=== PATIENT | female | born 1960 | race Caucasian/White ===

== ENCOUNTER 2020-08-31 14:22 | Outpatient (REF) | payer OTHER, SELFPAY | END 2020-08-31 14:23 | disposition home or self-care (01) | LOC: HO.LAB 14:22 | PROVIDERS: Visit Provider Internal Medicine | DX: Z20.828 Contact with and (suspected) exposure to other viral communicable diseases (principal) | CPT/HCPCS: C9803; U0003 ==

== ENCOUNTER 2020-09-03 16:47 | Outpatient (REF) | payer OTHER, SELFPAY ==
--- NOTE | 2020-09-03 | MM_ITS ---
EXAMINATION: MM SCREENING DIGITAL BREAST TOMOSYNTHESIS, BILATERAL CLINICAL INFORMATION: Screening. Asymptomatic. The lifetime risk of breast cancer based on the Tyrer-Cuzick Model is 5%. COMPARISON: Mammography: 01/18/2019, 09/09/2017 TECHNIQUE: Digital breast tomosynthesis is performed in both the craniocaudal and mediolateral oblique views along with computer-aided detection (CAD). Synthesized 2D images are generated from the tomosynthesis. FINDINGS: There are scattered areas of fibroglandular density (ACR BI-RADS breast composition Category b). There are no significant masses, abnormal calcifications, or other abnormalities. No significant changes from prior exams. MM/MM tomosynthesis screening BI IMPRESSION: No mammographic evidence of malignancy. ASSESSMENT: BI-RADS 1: Negative RECOMMENDATION: Routine annual mammography screening. This patient's information was entered into a reminder system with a target due date for their next mammogram.
== END 2020-09-03 16:48 | disposition home or self-care (01) ==
LOC: HO.MAMMO 16:47
PROVIDERS: PCP Internal Medicine; Visit Provider Internal Medicine
DX: Z12.31 Encounter for screening mammogram for malignant neoplasm of breast (principal)
CPT/HCPCS: 77063; 77067

== ENCOUNTER 2021-01-26 15:16 | Outpatient (REF) | payer OTHER, SELFPAY ==
[2021-01-26 16:59] LABS: Estimated Average Glucose 117 mg/dL; Hemoglobin A1c % 5.7 %
[2021-01-26 17:08] LABS: Alanine Aminotransferase 23 U/L (0-31); Anion Gap 12 (12-20); Aspartate Amino Transferase 20 U/L (5-31); Blood Urea Nitrogen 15 mg/dL (9-16); Calcium 9.6 mg/dL (8.4-10.2); Carbon Dioxide 27 mmol/L (22-29); Chloride 103 mmol/L (96-108); Cholesterol 180 mg/dL; Estimated Glomerular Filt Rate > 60; Glucose Fasting 85 mg/dL (60-99); HDL Cholesterol 56 mg/dL; LDL Cholesterol Calculated 109 mg/dl; Potassium 4.1 mmol/L (3.3-5.1); Sodium 138 mmol/L (135-145); Triglycerides 79 mg/dL
[2021-01-26 17:29] LABS: Vitamin D 25-OH Total 49.9 ng/mL (>30)
== END 2021-01-26 15:17 | disposition home or self-care (01) ==
LOC: HO.HMGCLDS 15:16
PROVIDERS: PCP Internal Medicine; Visit Provider Internal Medicine
DX: I10 Essential (primary) hypertension (principal); R73.01 Impaired fasting glucose; E78.5 Hyperlipidemia, unspecified; K44.9 Diaphragmatic hernia without obstruction or gangrene; Z78.0 Asymptomatic menopausal state
CPT/HCPCS: 36415; 80048; 80061; 82306; 83036; 84450; 84460

== ENCOUNTER 2021-05-05 09:54 | Outpatient (REF) | payer OTHER, SELFPAY ==
[2021-05-05 12:14] LABS: Alanine Aminotransferase 20 U/L (0-31); Albumin Level 4.4 g/dL (3.5-5.0); Alkaline Phosphatase 125 U/L (39-117); Anion Gap 11 (12-20); Aspartate Amino Transferase 18 U/L (5-31); Bilirubin Total 0.4 mg/dL (0.0-1.0); Blood Urea Nitrogen 11 mg/dL (9-16); Calcium 10.1 mg/dL (8.4-10.2); Carbon Dioxide 27 mmol/L (22-29); Chloride 106 mmol/L (96-108); Estimated Glomerular Filt Rate > 60; Glucose Random 93 mg/dL (60-115); Phosphorus 3.5 mg/dL (2.7-4.5); Potassium 4.7 mmol/L (3.3-5.1); Sodium 139 mmol/L (135-145); Total Protein 7.4 g/dL (6.5-8.0)
[2021-05-05 12:39] LABS: Free T4 (Free Thyroxine) 1.03 ng/dL (0.71-1.85); Vitamin D 25-OH Total 45.5 ng/mL (>30)
[2021-05-06 10:57] LABS: Calcium, Ionized 5.4 mg/dL (4.8-5.6)
[2021-05-06 19:45] LABS: Calcium (PTHI) 10.2 mg/dL (8.6-10.4); PTHI 66 pg/mL (14-64)
[2021-05-06 22:26] LABS: Prot Elec - Albumin 4.5 g/dL (3.8-4.8); Prot Elec - Alpha1 0.3 g/dL (0.2-0.3); Prot Elec - Alpha2 0.7 g/dL (0.5-0.9); Prot Elec - Beta 1 0.5 g/dL (0.4-0.6); Prot Elec - Beta 2 0.4 g/dL (0.2-0.5); Prot Elec - Gamma 1.3 g/dL (0.8-1.7); Prot Elec - Total Protein 7.6 g/dL (6.1-8.1)
== END 2021-05-05 09:55 | disposition home or self-care (01) ==
LOC: HO.LAB 09:54
PROVIDERS: PCP Internal Medicine; Visit Provider Internal Medicine
DX: M81.0 Age-related osteoporosis without current pathological fracture (principal); E55.9 Vitamin D deficiency, unspecified
CPT/HCPCS: 36415; 80053; 82306; 82330; 83970; 84100; 84165; 84439; 84443

== ENCOUNTER 2021-05-07 09:41 | Outpatient (REF) | payer OTHER, SELFPAY ==
[2021-05-07 11:21] LABS: Total Volume 24 Hour Urine 625 mL
[2021-05-07 11:39] LABS: Creatinine, 24Hr Urine 0.5 G/Day (1.0-2.0); Creatinine, mg/dL 78.91
[2021-05-08 20:42] LABS: Calcium, 24 Hr Urine 84 mg/24 h; Calcium/Creatinine Ratio 163 mg/g creat (30-275); Creatinine 24Hr Urine 0.51 g/24 h (0.50-2.15)
== END 2021-05-07 09:42 | disposition home or self-care (01) ==
LOC: HO.LNP 09:41
PROVIDERS: Visit Provider Internal Medicine
DX: M81.0 Age-related osteoporosis without current pathological fracture (principal)
CPT/HCPCS: 82340; 82570

== ENCOUNTER 2021-06-01 14:08 | Outpatient (REF) | payer OTHER, SELFPAY ==
--- NOTE | ~2021-06-01 | MM_ITS ---
EXAMINATION: BONE DENSITOMETRY CLINICAL INDICATION: Age-related osteoporosis without current pathological fracture. COMPARISON: Previous BD dated 03/05/2019 and baseline BD dated 05/07/2010. TECHNIQUE: Using a [employer] DXA System (software version: 13.1) manufactured by [employer], dual-energy x-ray absorptiometry was performed of the lumbar spine and left hip. The images are of good technical quality. Summary results are attached. FINDINGS: AP SPINE L1-L4: Current: BMD 0.881 g/cm2, Z-score -1.3, T-score -2.5, osteoporosis, 0.6% increase from previous, 8.5% increase from baseline (<5% change is not significant). Prior: BMD 0.876 g/cm2. Baseline: BMD 0.812 g/cm2. LEFT FEMUR, NECK: Current: BMD 0.761 g/cm2, Z-score -0.8, T-score -2.0, osteopenia. Prior: BMD 0.759 g/cm2. Baseline: BMD 0.776 g/cm2. LEFT FEMUR, TOTAL: Current: BMD 0.757 g/cm2, Z-score -1.1, T-score -2.0, osteopenia, 2.9% increase from previous, 3.8% increase from baseline (<5% change is not significant). Prior: BMD 0.736 g/cm2. Baseline: BMD 0.729 g/cm2. IDENTIFIED RISK FACTORS: Low calcium intake, secondary osteoporosis, history of fracture (adult), menopause. HISTORY OF FRACTURE: Clavicle. MEDICATIONS: Calcium supplements or multivitamin, vitamin D. MM/XR DEXA axial skeleton IMPRESSION: 1. DIAGNOSIS: Osteoporosis based on the lowest T-score value of -2.5 in the lumbar spine applying World Health Organization criteria. 2. 10-YEAR FRACTURE RISK PREDICTION, FRAX: Major osteoporotic fracture (clinical spine, forearm, hip or shoulder) 16.8%. Hip fracture 2.4%. 3. Treatment Recommendations: NOF guidelines recommend consideration for treatment in postmenopausal women and men age 50 and older presenting with the following: -A hip or vertebral (clinical or morphometric) fracture. -T-score less than or equal to -2.5 at the femoral neck or spine after appropriate evaluation to exclude secondary causes. -Low bone mass at the hip or spine and a 10-year fracture probability by FRAX of greater than or equal to 3% for hip fracture or greater than or equal to 20% for major osteoporotic fracture based on the [place] adapted WHO algorithm. 4. Other Recommendations: All treatment decisions require clinical judgment and consideration of individual patient factors, including patient preferences, comorbidities, previous drug use, risk factors not captured in the FRAX model (e.g. frailty, falls, vitamin D deficiency, increased bone turnover, interval significant decline in bone density) and possible under or overestimation of fracture risk by FRAX. Additional medical evaluation for secondary cause of low bone mineral density may be appropriate. FUTURE SCAN RECOMMENDATION: People with diagnosed cases of osteoporosis or at high risk for fracture should have regular bone mineral density tests. For patients eligible for Medicare, routine testing is allowed once every 2 years. The testing frequency can be increased to one year for patients who have rapidly progressing disease, those who are receiving or discontinuing medical therapy to restore bone mass, or have additional risk factors.
== END 2021-06-01 14:09 | disposition home or self-care (01) ==
LOC: HO.MAMMO 14:08
PROVIDERS: Visit Provider Internal Medicine
DX: Z13.820 Encounter for screening for osteoporosis (principal); M81.0 Age-related osteoporosis without current pathological fracture; Z79.899 Other long term (current) drug therapy; Z78.0 Asymptomatic menopausal state; Z87.81 Personal history of (healed) traumatic fracture
CPT/HCPCS: 77080

== ENCOUNTER 2021-08-05 14:00 | Outpatient (REF) | payer OTHER, SELFPAY ==
[2021-08-05 14:59] LABS: Influenza A PCR NEGATIVE (Negative); Influenza B PCR NEGATIVE (Negative); Resp Syncy Virus RNA Qual PCR NEGATIVE (Negative); SARS COV2 PCR INHOUSE NEGATIVE (Negative)
== END 2021-08-05 14:01 | disposition home or self-care (01) ==
LOC: HO.LNP 14:00
PROVIDERS: Visit Provider Physician Assistant Medical
DX: Z20.822 Contact with and (suspected) exposure to COVID-19 (principal); J06.9 Acute upper respiratory infection, unspecified
CPT/HCPCS: 0241U

== ENCOUNTER 2021-08-26 14:26 | Outpatient (REF) | payer OTHER, SELFPAY ==
--- NOTE | ~2021-08-26 | XR_ITS ---
EXAMINATION: XR SINUSES CLINICAL INFORMATION: Shortness of the nose and nasal sinuses COMPARISON: None TECHNIQUE: Single Diaz' view of the paranasal sinuses. FINDINGS: Single Diaz' view of the paranasal sinuses does not demonstrate any evidence of acute sinusitis or significant mucosal thickening within the visualized paranasal sinuses. Mastoid air cells are aerated. No bony destruction is evident. XR/XR sinus diaz view IMPRESSION: Single Diaz' view without definite evidence to suggest acute sinusitis.
== END 2021-08-26 14:27 | disposition home or self-care (01) ==
LOC: HO.HMGCX 14:26
PROVIDERS: PCP Internal Medicine; Visit Provider Internal Medicine
DX: J34.89 Other specified disorders of nose and nasal sinuses (principal); R09.81 Nasal congestion; R51.9 Headache, unspecified
CPT/HCPCS: 70210

== ENCOUNTER → 2021-09-02 08:01 | Outpatient (BNVA) | payer OTHER, SELFPAY | PROVIDERS: PCP Internal Medicine; Visit Provider Internal Medicine ==

== ENCOUNTER 2021-09-30 14:54 | Outpatient (REF) | payer OTHER, SELFPAY ==
--- NOTE | ~2021-09-30 | MM_ITS ---
EXAMINATION: BONE DENSITOMETRY CLINICAL INDICATION: Hyperparathyroidism, unspecified. COMPARISON: Bone densitometry 06/01/2021. TECHNIQUE: Using a [employer] DXA System (software version: 13.1) manufactured by [employer], dual-energy x-ray absorptiometry was performed of the left forearm radius 33%. The images are of good technical quality. Summary results are attached. FINDINGS: LEFT FOREARM RADIUS 33%: BMD 0.635 g/cm2, Z-score -1.7, T-score -2.8, osteoporosis. Prior: Not previously measured. IDENTIFIED RISK FACTORS: Hyperparathyroidism, secondary osteoporosis, history of fracture (adult), menopause. HISTORY OF FRACTURE: Clavicle. MEDICATIONS: Vitamin D. MM/XR DEXA appendicular skeleton IMPRESSION: 1. DIAGNOSIS: Osteoporosis based on the lowest T-score value of -2.8 in the forearm radius 33% applying World Health Organization criteria. 2. 10-YEAR FRACTURE RISK PREDICTION, FRAX: According to the guidelines, FRAX calculation should only be performed on patients in the osteopenia bone density category. 3. Treatment Recommendations: NOF guidelines recommend consideration for treatment in postmenopausal women and men age 50 and older presenting with the following: -A hip or vertebral (clinical or morphometric) fracture. -T-score less than or equal to -2.5 at the femoral neck or spine after appropriate evaluation to exclude secondary causes. -Low bone mass at the hip or spine and a 10-year fracture probability by FRAX of greater than or equal to 3% for hip fracture or greater than or equal to 20% for major osteoporotic fracture based on the [place] adapted WHO algorithm. 4. Other Recommendations: All treatment decisions require clinical judgment and consideration of individual patient factors, including patient preferences, comorbidities, previous drug use, risk factors not captured in the FRAX model (e.g. frailty, falls, vitamin D deficiency, increased bone turnover, interval significant decline in bone density) and possible under or overestimation of fracture risk by FRAX. Additional medical evaluation for secondary cause of low bone mineral density may be appropriate. FUTURE SCAN RECOMMENDATION: People with diagnosed cases of osteoporosis or at high risk for fracture should have regular bone mineral density tests. For patients eligible for Medicare, routine testing is allowed once every 2 years. The testing frequency can be increased to one year for patients who have rapidly progressing disease, those who are receiving or discontinuing medical therapy to restore bone mass, or have additional risk factors.
== END 2021-09-30 14:55 | disposition home or self-care (01) ==
LOC: HO.MAMMO 14:54
PROVIDERS: PCP Internal Medicine; Visit Provider Internal Medicine
DX: Z13.820 Encounter for screening for osteoporosis (principal); E21.3 Hyperparathyroidism, unspecified; M85.80 Other specified disorders of bone density and structure, unspecified site; Z78.0 Asymptomatic menopausal state; Z87.81 Personal history of (healed) traumatic fracture; Z98.890 Other specified postprocedural states; Z79.899 Other long term (current) drug therapy
CPT/HCPCS: 77081

== ENCOUNTER 2021-10-11 13:54 | Outpatient (REF) | payer OTHER, SELFPAY ==
--- NOTE | ~2021-10-11 | US_ITS ---
EXAMINATION: US THYROID CLINICAL INFORMATION: Hyperparathyroidism, unspecified. COMPARISON: None TECHNIQUE: Linear transducer grayscale and color Doppler examination with attention to the region of the thyroid. FINDINGS: SIZE: Measurements of the thyroid lobes and nodules are given in sagittal, anteroposterior and transverse dimensions respectively. Right Thyroid Lobe: 5.2 x 2.1 x 1.7 cm, volume 9.7 mL. Parenchyma: The gland echotexture is homogeneous. Thyroid vascularity is normal. Left Thyroid Lobe: 4.1 x 1.3 x 1.6 cm, volume 4.5 mL. Parenchyma: The gland echotexture is homogeneous. Thyroid vascularity is normal. Isthmus: 0.2 cm in maximum AP dimension. Estimated total number of nodules greater than or equal to 1 cm: 1. Teacher Aide Clerical nodules are described as follows: 1. Location: Medial mid left. Size: 0.5 x 0.2 x 0.2 cm, volume 0.02 mL. Nodule characteristics: Composition: Spongiform (0). Echogenicity: Anechoic (0). Shape: Not taller than wide (0). Margins: Smooth (0). Echogenic Foci: None (0). ACR TI-RADS total points: 0 ACR TI-RADS category: 1 2. Location: Inferior left. Size: 1.1 x 0.6 x 1.0 cm, volume 0.32 mL. Nodule characteristics: Composition: Solid (2). Echogenicity: Very hypoechoic (3). Shape: Not taller than wide (0). Margins: Smooth (0). Echogenic Foci: None (0). ACR TI-RADS total points: 5 ACR TI-RADS category: 4 NODES: No significant adenopathy noted. Lung the inferior margin of the right and left lobe, a small hypoechoic areas, on the right at 13 x 8 x 6 mm and on the left 6 x 5 x 9 mm. These may reflect a parathyroid glands. US/US thyroid IMPRESSION: Small hypoechoic nodules in the left lobe. TR 4. Twelve-month follow-up advised. ACR TI-RADS RECOMMENDATION REFERENCE: Ultrasound-guided fine-needle aspiration, followup ultrasound, no further follow up. * TR1 (0 point) and TR 2 (2 points): No FNA or follow up * TR3 (3 points): FNA if more than or equal to 2.5 cm in maximum dimension, followup ultrasound in 1, 3 and 5 years if 1.5 to 2.4 cm in maximum dimension. * TR4 (4-6 points): FNA if more than or equal to 1.5 cm in maximum dimension, followup ultrasound in 1, 2, 3 and 5 years if 1 to 1.4 cm in maximum dimension. * TR5 (more than or equal to 7 points): FNA if more than or equal to 1 cm in maximum dimension, followup ultrasound every year for 5 years if 0.5 to 0.9 cm in maximum dimension. * TR3, TR4 or TR5 nodules that are below the size threshold for follow up receive no follow up.
[2021-10-11 16:56] LABS: Alanine Aminotransferase 27 U/L (0-31); Albumin Level 4.3 g/dL (3.5-5.0); Alkaline Phosphatase 118 U/L (39-117); Anion Gap 12 (12-20); Aspartate Amino Transferase 21 U/L (5-31); Bilirubin Total 0.3 mg/dL (0.0-1.0); Blood Urea Nitrogen 16 mg/dL (9-16); Calcium 9.8 mg/dL (8.4-10.2); Carbon Dioxide 25 mmol/L (22-29); Chloride 105 mmol/L (96-108); Estimated Glomerular Filt Rate > 60; Glucose Random 84 mg/dL (60-115); Phosphorus 2.7 mg/dL (2.7-4.5); Potassium 4.3 mmol/L (3.3-5.1); Sodium 138 mmol/L (135-145); Total Protein 7.4 g/dL (6.5-8.0)
[2021-10-11 17:16] LABS: Vitamin D 25-OH Total 42.1 ng/mL (>30)
[2021-10-13 12:47] LABS: Calcium (PTHI) 9.8 mg/dL (8.6-10.4); PTHI 79 pg/mL (14-64)
== END 2021-10-11 13:55 | disposition home or self-care (01) ==
LOC: HO.HMGCX 13:54
PROVIDERS: Absent Provider Internal Medicine; PCP Internal Medicine; Visit Provider Internal Medicine
DX: E21.3 Hyperparathyroidism, unspecified (principal); M81.0 Age-related osteoporosis without current pathological fracture; Z78.0 Asymptomatic menopausal state
CPT/HCPCS: 36415; 76536; 80053; 82306; 83970; 84100

== ENCOUNTER 2021-10-14 09:23 | Outpatient (REF) | payer OTHER, SELFPAY ==
[2021-10-14 10:10] LABS: Alanine Aminotransferase 27 U/L (0-31); Aspartate Amino Transferase 19 U/L (5-31); Cholesterol 201 mg/dL; Glucose Fasting 104 mg/dL (60-99); HDL Cholesterol 49 mg/dL; LDL Cholesterol Calculated 123 mg/dl; Triglycerides 145 mg/dL
[2021-10-14 10:33] LABS: Vitamin D 25-OH Total 46.2 ng/mL (>30)
[2021-10-14 11:06] LABS: Creatinine, mg/dL 92.78
[2021-10-14 11:55] LABS: Creatinine, 24Hr Urine 1.7 G/Day (1.0-2.0); Total Volume 24 Hour Urine 1825 mL
[2021-10-15 18:00] LABS: Calcium, 24 Hr Urine 195 mg/24 h; Calcium/Creatinine Ratio 113 mg/g creat (30-275); Creatinine 24Hr Urine 1.73 g/24 h (0.50-2.15)
== END 2021-10-14 09:24 | disposition home or self-care (01) ==
LOC: HO.LAB 09:23
PROVIDERS: PCP Internal Medicine; Visit Provider Internal Medicine
DX: E78.5 Hyperlipidemia, unspecified (principal); M81.0 Age-related osteoporosis without current pathological fracture; R73.01 Impaired fasting glucose; E55.9 Vitamin D deficiency, unspecified; E21.3 Hyperparathyroidism, unspecified; Z78.0 Asymptomatic menopausal state
CPT/HCPCS: 36415; 80061; 82306; 82340; 82570; 82947; 84450; 84460

== ENCOUNTER → 2021-10-28 12:53 | Outpatient (BNVA) | payer OTHER, SELFPAY | PROVIDERS: PCP Internal Medicine; Visit Provider Internal Medicine ==

== ENCOUNTER 2021-11-20 09:06 | Outpatient (REF) | payer OTHER, SELFPAY ==
--- NOTE | ~2021-11-20 | MM_ITS ---
EXAMINATION: MM SCREENING DIGITAL BREAST TOMOSYNTHESIS, BILATERAL CLINICAL INFORMATION: Screening. Asymptomatic. The lifetime risk of breast cancer based on the Tyrer-Cuzick Model is 5%. COMPARISON: Mammography: 09/03/2020, 01/18/2019, 09/09/2017 TECHNIQUE: Digital breast tomosynthesis is performed in both the craniocaudal and mediolateral oblique views along with computer-aided detection (CAD). Synthesized 2D images are generated from the tomosynthesis. FINDINGS: There are scattered areas of fibroglandular density (ACR BI-RADS breast composition Category b). There are no significant masses, abnormal calcifications, or other abnormalities. Parenchymal pattern is similar to prior studies. There is no developing density or architectural abnormality. The axilla and skin contours are unremarkable. No significant changes. MM/MM tomosynthesis screening BI IMPRESSION: No mammographic evidence of malignancy. ASSESSMENT: BI-RADS 1: Negative RECOMMENDATION: Routine annual mammography screening. This patient's information was entered into a reminder system with a target due date for their next mammogram.
== END 2021-11-20 09:07 | disposition home or self-care (01) ==
LOC: HO.MAMMO 09:06
PROVIDERS: PCP Internal Medicine; Visit Provider Internal Medicine
DX: Z12.31 Encounter for screening mammogram for malignant neoplasm of breast (principal)
CPT/HCPCS: 77063; 77067

== ENCOUNTER 2022-01-08 10:15 | Outpatient (REF) | payer OTHER, SELFPAY ==
--- NOTE | ~2022-01-08 | XR_ITS ---
EXAMINATION: XR CHEST CLINICAL INFORMATION: Cough COMPARISON: Previous chest x-ray most recent June 2020 TECHNIQUE: 2 views of the chest were obtained. FINDINGS: The cardiac and mediastinal contours are stable. The lungs are well inflated. There is chronic bronchial wall thickening or scarring in the right suprahilar region/paraspinal right upper lobe that appears unchanged. There is mild biapical pleural thickening that appears unchanged. The lungs are otherwise clear. There is no pleural effusion or pneumothorax. There are degenerative changes of the spine. XR/XR chest 2V IMPRESSION: No evidence for acute disease in the chest. Well-inflated lungs. Chronic right suprahilar bronchial wall thickening or scarring and mild biapical pleural thickening similar to previous exam.
== END 2022-01-08 10:16 | disposition home or self-care (01) ==
LOC: HO.HMGCX 10:15
PROVIDERS: PCP Internal Medicine; Visit Provider Physician Assistant Medical
DX: R05.9 Cough, unspecified (principal)
CPT/HCPCS: 71046

== ENCOUNTER 2022-05-12 09:31 | Outpatient (REF) | payer OTHER, SELFPAY ==
--- NOTE | 2022-05-12 10:23 | PM.OP ---
Brief Operative Note Date of Service: 05/12/22 Pre-op diagnosis: Multinodular Thyroid Procedure: This is doctor Anastacia Ashley. This is an ultrasound-guided fine-needle aspiration report. Date of Examination: 05/12/2022 Indication: Multinodular Thyroid Porcedure: Procedure was explained to the patient. Alternatives, the risk and benefits were discussed. Written consent was obtained. A time-out was also obtained. After sterile preparation, fine-needle aspiration of a left lower pole 1.1 thyroid nodule was performed using direct ultrasound guidance to confirm accurate needle placement. Five aspirations were made using 27 gauge needles. Samples were submitted for cytology. One pass was dedicated for Af[employer] Gene sequencing high school guidance counselor testing. The patient tolerated the procedure well. Aftercare instructions were provided. Impression: Uncomplicated fine needle aspiration biopsy of a left lower pole 1.1 cm thyroid nodule under ultrasound guidance. Surgeon: Anastacia Ashley, DO Was an Splitter Operator used for this Procedure?: No Estimated blood loss (mL): 0
[2022-05-12 11:39] LABS: Alanine Aminotransferase 20 U/L (0-31); Albumin Level 4.5 g/dL (3.5-5.0); Alkaline Phosphatase 119 U/L (39-117); Anion Gap 11 (12-20); Aspartate Amino Transferase 19 U/L (5-31); Bilirubin Total 0.5 mg/dL (0.0-1.0); Blood Urea Nitrogen 16 mg/dL (9-16); Carbon Dioxide 25 mmol/L (22-29); Chloride 105 mmol/L (96-108); Estimated Glomerular Filt Rate > 60; Glucose Random 96 mg/dL (60-115); Phosphorus 3.4 mg/dL (2.7-4.5); Potassium 4.2 mmol/L (3.3-5.1); Sodium 137 mmol/L (135-145); Total Protein 7.4 g/dL (6.5-8.0)
[2022-05-12] MEDS: Lidocaine HCl 1 % 20 ML VIAL 5 ML SUBCUT (11:43)
[2022-05-12 11:51] LABS: Free T4 (Free Thyroxine) 1.15 ng/dL (0.71-1.85); Thyroid Stimulating Hormone 1.65 uIU/mL (0.32-4.0); Vitamin D 25-OH Total 44.9 ng/mL (>30)
[2022-05-15 13:06] LABS: Calcium (PTHI) 9.9 mg/dL (8.6-10.4); PTHI 68 pg/mL (16-77)
== END 2022-05-12 09:32 | disposition home or self-care (01) ==
LOC: HO.US 09:31
PROVIDERS: Visit Provider Internal Medicine
DX: E21.3 Hyperparathyroidism, unspecified (principal); E04.2 Nontoxic multinodular goiter; E55.9 Vitamin D deficiency, unspecified
CPT/HCPCS: 10005; 36415; 80053; 82306; 83970; 84100; 84439; 84443; 88172; 88173; 88177

== ENCOUNTER 2022-11-22 09:26 | Outpatient (REF) | payer OTHER, SELFPAY ==
[2022-11-22 10:42] LABS: Alanine Aminotransferase 21 U/L (0-31); Alkaline Phosphatase 118 U/L (39-117); Anion Gap 14 (12-20); Aspartate Amino Transferase 16 U/L (5-31); Bilirubin Total 0.5 mg/dL (0.0-1.0); Blood Urea Nitrogen 14 mg/dL (9-16); Calcium 9.2 mg/dL (8.4-10.2); Carbon Dioxide 21 mmol/L (22-29); Chloride 107 mmol/L (96-108); Estimated Glomerular Filt Rate > 60; Glucose Random 88 mg/dL (60-115); Phosphorus 3.7 mg/dL (2.7-4.5); Potassium 4.3 mmol/L (3.3-5.1); Sodium 138 mmol/L (135-145); Total Protein 6.7 g/dL (6.5-8.0)
[2022-11-22 11:03] LABS: Free T4 (Free Thyroxine) 1.06 ng/dL (0.71-1.85); Thyroid Stimulating Hormone 0.95 uIU/mL (0.32-4.0); Vitamin D 25-OH Total 46.9 ng/mL (>30)
[2022-11-23 11:49] LABS: Calcium (PTHI) 9.1 mg/dL (8.6-10.4); PTHI 27 pg/mL (16-77)
== END 2022-11-22 09:27 | disposition home or self-care (01) ==
LOC: HO.LAB 09:26
PROVIDERS: PCP Internal Medicine; Visit Provider Internal Medicine
DX: E55.9 Vitamin D deficiency, unspecified (principal); E04.2 Nontoxic multinodular goiter; E21.3 Hyperparathyroidism, unspecified
CPT/HCPCS: 36415; 80053; 82306; 83970; 84100; 84439; 84443

== ENCOUNTER → 2022-11-24 14:58 | Outpatient (BNVA) | payer OTHER, SELFPAY | PROVIDERS: PCP Internal Medicine; Visit Provider Internal Medicine | DX: Z13.89 Encounter for screening for other disorder (principal) ==

== ENCOUNTER 2023-01-12 11:09 | Outpatient (REF) | payer OTHER, SELFPAY ==
[2023-01-17 04:08] LABS: HPV mRNA E6/E7 rflx Not Detected (Not Detected)
== END 2023-01-12 11:10 | disposition home or self-care (01) ==
LOC: HO.LNP 11:09
PROVIDERS: Visit Provider Internal Medicine
DX: Z12.4 Encounter for screening for malignant neoplasm of cervix (principal); Z11.51 Encounter for screening for human papillomavirus (HPV)
CPT/HCPCS: 87624; 88142

== ENCOUNTER 2023-02-20 15:15 | Outpatient (REF) | payer OTHER, SELFPAY ==
[2023-02-20 17:05] LABS: Alanine Aminotransferase 24 U/L (0-31); Albumin Level 4.3 g/dL (3.5-5.0); Alkaline Phosphatase 96 U/L (39-117); Anion Gap 12 (12-20); Aspartate Amino Transferase 19 U/L (5-31); Bilirubin Total 0.4 mg/dL (0.0-1.0); Blood Urea Nitrogen 22 mg/dL (9-16); Calcium 9.3 mg/dL (8.4-10.2); Carbon Dioxide 27 mmol/L (22-29); Chloride 105 mmol/L (96-108); Estimated Glomerular Filt Rate > 60; Glucose Random 84 mg/dL (60-115); Phosphorus 3.8 mg/dL (2.7-4.5); Potassium 4.3 mmol/L (3.3-5.1); Sodium 140 mmol/L (135-145); Total Protein 7.1 g/dL (6.5-8.0)
[2023-02-20 17:20] LABS: Free T4 (Free Thyroxine) 0.99 ng/dL (0.71-1.85); Thyroid Stimulating Hormone 4.69 uIU/mL (0.32-4.0); Vitamin D 25-OH Total 55.9 ng/mL (>30)
[2023-02-22 16:19] LABS: Calcium (PTHI) 9.4 mg/dL (8.6-10.4); PTHI 24 pg/mL (16-77)
== END 2023-02-20 15:16 | disposition home or self-care (01) ==
LOC: HO.HMGCLDS 15:15
PROVIDERS: PCP Internal Medicine; Visit Provider Internal Medicine
DX: E04.2 Nontoxic multinodular goiter (principal); C73 Malignant neoplasm of thyroid gland; E21.3 Hyperparathyroidism, unspecified; E55.9 Vitamin D deficiency, unspecified
CPT/HCPCS: 36415; 80053; 82306; 83970; 84100; 84439; 84443

== ENCOUNTER → 2023-02-27 13:56 | Outpatient (BNVA) | payer OTHER, SELFPAY | PROVIDERS: PCP Internal Medicine; Visit Provider Internal Medicine ==

== ENCOUNTER 2023-03-21 09:55 | Outpatient (REF) | payer OTHER, SELFPAY ==
[2023-03-21 12:33] LABS: Free T4 (Free Thyroxine) 0.99 ng/dL (0.71-1.85); Thyroid Stimulating Hormone 3.41 uIU/mL (0.32-4.0)
== END 2023-03-21 09:56 | disposition home or self-care (01) ==
LOC: HO.HMGCLDS 09:55
PROVIDERS: PCP Internal Medicine; Visit Provider Internal Medicine
DX: E89.0 Postprocedural hypothyroidism (principal)
CPT/HCPCS: 36415; 84439; 84443

== ENCOUNTER 2023-05-30 08:49 | Outpatient (REF) | payer OTHER, SELFPAY ==
[2023-05-30 11:37] LABS: Estimated Average Glucose 114 mg/dL; Hemoglobin A1c % 5.6 %
[2023-05-30 11:55] LABS: Alanine Aminotransferase 21 U/L (0-31); Alkaline Phosphatase 90 U/L (39-117); Anion Gap 9 (12-20); Aspartate Amino Transferase 18 U/L (5-31); Bilirubin Total 0.5 mg/dL (0.0-1.0); Blood Urea Nitrogen 16 mg/dL (9-16); Calcium 8.6 mg/dL (8.4-10.2); Carbon Dioxide 24 mmol/L (22-29); Chloride 111 mmol/L (96-108); Cholesterol 169 mg/dL; Estimated Glomerular Filt Rate > 60; Glucose Fasting 98 mg/dL (60-99); Glucose Random 98 mg/dL (60-115); HDL Cholesterol 56 mg/dL; LDL Cholesterol Calculated 94 mg/dl; Phosphorus 2.6 mg/dL (2.7-4.5); Potassium 3.9 mmol/L (3.3-5.1); Sodium 140 mmol/L (135-145); Total Protein 7.2 g/dL (6.5-8.0); Triglycerides 95 mg/dL
[2023-05-30 12:12] LABS: Thyroid Stimulating Hormone 2.54 uIU/mL (0.32-4.0)
[2023-05-30 12:15] LABS: Free T4 (Free Thyroxine) 0.89 ng/dL (0.71-1.85); Vitamin D 25-OH Total 64.8 ng/mL (>30)
[2023-06-01 09:14] LABS: Calcium (PTHI) 8.6 mg/dL (8.6-10.4); PTHI 57 pg/mL (16-77)
== END 2023-05-30 08:50 | disposition home or self-care (01) ==
LOC: HO.HMGCLDS 08:49
PROVIDERS: Internal Medicine; PCP Internal Medicine; Visit Provider Internal Medicine
DX: Z00.01 Encounter for general adult medical examination with abnormal findings (principal); E78.5 Hyperlipidemia, unspecified; R73.01 Impaired fasting glucose; E21.3 Hyperparathyroidism, unspecified; E89.0 Postprocedural hypothyroidism; E55.9 Vitamin D deficiency, unspecified
CPT/HCPCS: 36415; 80053; 80061; 82306; 82947; 83036; 83970; 84100; 84439; 84443

== ENCOUNTER 2023-10-11 15:16 | Outpatient (AMB) | payer OTHER, SELFPAY ==
[2023-10-11 15:18] VITALS: BP 160/96; PULSE 90
--- NOTE | 2023-10-11 15:18 | A.OFFVIS_ITS ---
Intake Vital Signs 10/11/23 15:18 Height 5 ft 2 in Weight 164 lb 3.91 oz BMI 30.0 BP 160/96 H Blood Pressure Location Lt brachial Position Sitting Pulse 90 Pulse Source Pulse Oximeter Intake Visit Reasons: Thyroid cancer-CONFIRMED Intake Note: Patient present for Thyroid Cancer follow up visit. Visual Education Director Required: No Accompanied by: Self / Same As Patient Allergies trees Allergy (Mild, Uncoded 02/27/23 14:18) watery eyes, scratchy throat chocholate Allergy (Unknown, Uncoded 02/27/23 14:18) rash Medication List - Last Reconciled 10/11/23 by Anurag Pacheco MD albuterol sulfate 2.5 mg (3 mL) inhalation Q6H PRN atorvastatin 10 mg PO DAILY calcium citrate-vitamin D3 315 mg-6.25 mcg (250 unit) 2 tabs PO DAILY cholecalciferol (vitamin D3) 25 mcg PO DAILY flunisolide 2 sprays intranasal BID fluticasone propion-salmeterol 250-50 mcg/dose (Advair Diskus) 1 inh inhalation BID levothyroxine 25 mcg PO DAILY montelukast 10 mg PO QAM HPI HPI Comments History of Present Illness0 Details 63 YO Female with PMHx Celiac Disease and COPD is seen in F/U for Osteoporosis due to hyperparathyroidism and a new diagnosis of micropapillary thyroid carcinoma. The patient last saw Dr. Hodges on 02/27/2023 1) Osteoporosis and hyperparathyroidism. First diagnosed in 2019. She has never been treated. After her initial visit with me we checked a full biochemical evaluation for secondary causes of Osteoporosis. This revealed evidence of primary hyperparathyroidism with labs 05/05/2021 Calcium 10.2, Albumin 4.4, PTH 66 and Vitamin D 45.5. Labs were repeated 10/11/2021 with Calcium 9.8, Albumin 4.3, PTH 76 and Vitamin D 46.2. 24 hour urine calcium was WNL. She had an US of the neck which revealed what appears to be a 1.3 cm right sided parathyroid adenoma adjacent to the right lower pole of the thyroid. She also has a 1.1 cm hypoechoic left lower pole thyroid nodule which I suspect may represent an intrathyroidal parathyroid. She was referred to Dr. Sandoval and underwent a subtotal parathyroidectomy with resection of of 3 parathyroid glands (left inferior, left superior and right inferior) all with pathology confirming hypercellular parathyroid tissue. Biopsy was taken of the right superior parathyroid, with cytology revealing normocellular parathyroid tissue. Has 0 servings of dietary calcium per day. Takes Calcium citrate 600 mg PO daily. Takes 1000 IU of Vitamin D daily. Denies using PPI, anticoagulant, antiepileptic or glucocorticoid medication. Has used prednisone tapers in the past, but no rodent exterminator glucocorticoid therapy. Has celiac disease and follows a strict gluten free diet. Does weight bearing exercise in the form of walking 5000 steps 5 days per week. Fracture history: Fractured her collar bone. This was a fragility fracture from a fall from standing. 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 Menses was always regular. . She did breastfeed 3-4 hours in total. Menopause was in her 50's, but she does not recall. Did have kidney stones in the past. Denies family history of Osteoporosis or hip fracture. UTD on dental cleanings and sees dentist every 6 months. No planned upcoming dental work or extractions. 2) NTMNG: She had an US of the thyroid completed 10/05/2021 which revealed a multinodular thyroid. She then underwent FNA biopsy of her RMP 1.1 cm thyroid nodule with cytology consistent with a follicular lesion of undetermined significance (bethesda category III). 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 She was referred to Dr. Turner and underwent a L thyroid lobectomy. Surgical pathology revealed incidental finding of 1.5 mm of classic PTC. This was unifocal, with no angioinvasion, no lymphatic invasion, no perineural invasion and no extrathyroidal extension. Margins were uninvolved. 0/4 lymph nodes were positive for metastatic disease. She is seen today in F/U. DEXA: 06/01/2021 FINDINGS: AP SPINE L1-L4: Current: BMD 0.881 g/cm2, Z-score -1.3, T-score -2.5, osteoporosis, 0.6% increase from previous, 8.5% increa se from baseline (<5% change is not significant). Prior: BMD 0.876 g/cm2. Baseline: BMD 0.812 g/cm2. LEFT FEMUR, NECK: Current: BMD 0.761 g/cm2, Z-score -0.8, T-score -2.0, osteopenia. Prior: BMD 0.759 g/cm2. Baseline: BMD 0.776 g/cm2. LEFT FEMUR, TOTAL: Current: BMD 0.757 g/cm2, Z-score -1.1, T-score -2.0, osteopenia, 2.9% increase from previous, 3.8% increase from baseline (<5% change is not significant). Prior: BMD 0.736 g/cm2. Baseline: BMD 0.729 g/cm2. Distal Forearm DEXA 09/30/2021: FINDINGS: LEFT FOREARM RADIUS 33%: BMD 0.635 g/cm2, Z-score -1.7, T-score -2.8, osteoporosis. Prior:? Not previously measured. Thyroid US: 10/05/21 Right Thyroid Lobe: 5.2 x 2.1 x 1.7 cm, volume 9.7 mL. Parenchyma: The gland echotexture is homogeneous. Thyroid vascularity is normal. Left Thyroid Lobe: 4.1 x 1.3 x 1.6 cm, volume 4.5 mL. Parenchyma: The gland echotexture is homogeneous. Thyroid vascularity is normal. Isthmus: 0.2 cm in maximum AP dimension. Estimated total number of nodules greater than or equal to 1 cm: 1. Certified Orthotist nodules are described as follows: 1. Location: Medial mid left. ?? ? Size: 0.5 x 0.2 x 0.2 cm, volume 0.02 mL. ?? ? Nodule characteristics: ?? ? Composition: Spongiform (0). ?? ? Echogenicity: Anechoic (0). ?? ? Shape: Not taller than wide (0). ?? ? Margins: Smooth (0). ?? ? Echogenic Foci: None (0). ?? ? ACR TI-RADS total points: 0 ?? ? ACR TI-RADS category: 1 2. Location: Inferior left. ?? ? Size: 1.1 x 0.6 x 1.0 cm, volume 0.32 mL. ?? ? Nodule characteristics: ?? ? Composition: Solid (2). ?? ? Echogenicity: Very hypoechoic (3). ?? ? Shape: Not taller than wide (0). ?? ? Margins: Smooth (0). ?? ? Echogenic Foci: None (0). ?? ? ACR TI-RADS total points: 5 ?? ? ACR TI-RADS category: 4 NODES: No significant adenopathy noted. Lung the inferior margin of the right and left lobe, a small hypoechoic areas, on the right at 13 x 8 x 6 mm and on the left 6 x 5 x 9 mm. These may reflect a parathyroid glands. Labs: Laboratory Tests 02/20/23 02/20/23 15:20 15:20 Creatinine 0.84 Estimated GFR > 60 25-OH Vitamin D To jerry 55.9 TSH 4.69 H PTH Intact 24 Calcium (PTH Intac t) 9.4 She is currently on levothyroxine 25 micrograms. [facility] Medical History (Updated 02/27/23 @ 14:36 by Anastacia Ashley DO) Postoperative hypothyroidism Thyroid cancer Multinodular thyroid Hyperparathyroidism Allergic rhinitis Deviated nasal septum Vitamin D deficiency Osteoporosis Tubular adenoma of colon Celiac disease Emphysema lung Hiatal hernia Impaired fasting glucose Dyslipidemia Surgical History History of lobectomy of thyroid Hx of parathyroidectomy Hx of biopsy History of tonsillectomy and adenoidectomy History of Family History Father Essential hypertension CVA (cerebral vascular accident) Cardiovascular disease Mother Essential hypertension Skin cancer Heart disease Brother FHx: early [place] Social History Housing: House Alcohol intake: former Patient Tobacco Use Status: Former Tobacco user Quit Date: 2009 e-Cigarette/Vaping Use: Never Used Current occupational status: employed Cognitive needs: No Hearing needs: No Vision needs: Yes Physical Exam Vital Signs: Last Vital Signs Pulse 90 10/11/23 15:18 BP 160/96 H 10/11/23 15:18 BMI result Body Mass Index 30.0 Assessment & Plan Assessment & Plan (1) Thyroid cancer: Code(s): C73 - Malignant neoplasm of thyroid gland Plan: This 63-year-old white female status post right lobectomy and parathyroidectomy with micro papillary cancer present. Left lobe does not contain the presence of any nodules. She is currently on 25 mcg levothyroxine appears to be clinically and biochemically euthyroid. Plan is to continue the current therapy. Will check neck ultrasound. Orders: Orders US thyroid Today C73 - Malignant neoplasm of thyroid gland Coding Level of Care Code Est Pt Level 3 (36933) Diagnoses Thyroid cancer C73
== END 2023-10-11 15:41 | disposition home or self-care (01) ==
PROVIDERS: PCP Internal Medicine; Visit Provider Internal Medicine Endocrinology, Diabetes & Metabolism
DX: C73 Malignant neoplasm of thyroid gland (principal)
CPT/HCPCS: 99213

== ENCOUNTER → 2023-10-11 15:16 | Outpatient (BNVA) | payer OTHER, SELFPAY | PROVIDERS: PCP Internal Medicine; Visit Provider Internal Medicine Endocrinology, Diabetes & Metabolism ==

== ENCOUNTER 2023-10-24 15:18 | Outpatient (REF) | payer OTHER, SELFPAY ==
--- NOTE | ~2023-10-24 | US_ITS ---
EXAMINATION: US THYROID CLINICAL INFORMATION: Malignant neoplasm of thyroid gland. COMPARISON: Thyroid ultrasound 10/11/2021. TECHNIQUE: Linear transducer castaneda-scale and color Doppler examination with attention to the region of the thyroid. FINDINGS: SIZE: Measurements of the solitary right thyroid lobe and nodules are given in sagittal, anteroposterior and transverse dimensions respectively. Right Thyroid Lobe: 5.1 x 1.9 x 1.4 cm, volume 7.2 mL. Previously 5.2 x 2.1 x 1.7 cm, volume 9.7 mL. Parenchyma: The gland echotexture is homogeneous. Thyroid vascularity is normal. Left Thyroid Lobe: Surgically absent. Isthmus: 0.38 cm in maximum AP dimension. Previously 0.20 cm. No focal thyroid nodule is seen. No abnormality is seen in the bed of the left thyroid lobe. NODES: No lymphadenopathy is seen in the tissue surrounding the thyroid gland. US/US thyroid IMPRESSION: 1. Prior left thyroidectomy. No abnormality is seen in the bed of the left thyroid lobe. 2. Normal appearance of the right lobe and isthmus. No focal nodule is seen. ACR TI-RADS RECOMMENDATION REFERENCE: Ultrasound-guided fine-needle aspiration, follow up ultrasound, no further followup. * TR1 (0 point) and TR2 (2 points): No FNA or followup * TR3 (3 points): FNA if more than or equal to 2.5 cm in maximum dimension, follow up ultrasound in 1, 3 and 5 years if 1.5 to 2.4 cm in maximum dimension. * TR4 (4-6 points): FNA if more than or equal to 1.5 cm in maximum dimension, follow up ultrasound in 1, 2, 3 and 5 years if 1 to 1.4 cm in maximum dimension. * TR5 (more than or equal to 7 points): FNA if more than or equal to 1 cm in maximum dimension, follow up ultrasound every year for 5 years if 0.5 to 0.9 cm in maximum dimension. * TR3, TR4 or TR5 nodules that are below the size threshold for follow up receive no followup.
== END 2023-10-24 15:19 | disposition home or self-care (01) ==
LOC: HO.HMGCX 15:18
PROVIDERS: PCP Internal Medicine; Visit Provider Internal Medicine Endocrinology, Diabetes & Metabolism
DX: C73 Malignant neoplasm of thyroid gland (principal)
CPT/HCPCS: 76536

== ENCOUNTER 2024-04-11 15:38 | Outpatient (AMB) | payer OTHER, SELFPAY ==
[2024-04-11 15:39] VITALS: BP 130/92; PULSE 77; BMI 28.1
--- NOTE | 2024-04-11 15:39 | MHC.OFFVIS ---
Vital Signs 04/11/24 15:39 Height 5 ft 2 in Weight 153 lb 7.068 oz BMI 28.1 BP 130/92 H Blood Pressure Location Lt brachial Position Sitting Pulse 77 Pulse Source Pulse Oximeter Intake Visit Reasons: f/u thyroid cancer/ osteoporosis-lvm Intake Note: Patient present today for Thyroid cancer/Osteoporosis follow up visit. 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 Accompanied by: Self / Same As Patient Allergies trees Allergy (Mild, Uncoded 04/11/24 15:43) watery eyes, scratchy throat chocholate Allergy (Unknown, Uncoded 04/11/24 15:43) rash Medication List - Last Reconciled 04/11/24 by Anurag Pacheco MD albuterol sulfate 2.5 mg (3 mL) inhalation Q6H PRN atorvastatin 10 mg PO DAILY calcium citrate-vitamin D3 315 mg-6.25 mcg (250 unit) 2 tabs PO DAILY cholecalciferol (vitamin D3) 25 mcg PO DAILY flunisolide 2 sprays intranasal BID fluticasone propion-salmeterol 250-50 mcg/dose (Advair Diskus) 1 inh inhalation BID levothyroxine 25 mcg PO DAILY montelukast 10 mg PO QAM HPI Comments Details: 63 YO Female with PMHx Celiac Disease and COPD is seen in F/U for Osteoporosis due to hyperparathyroidism and a new diagnosis of micropapillary thyroid carcinoma. The patient last saw Dr. Hodges on 02/27/2023 1) Osteoporosis and hyperparathyroidism. First diagnosed in 2019. She has never been treated. After her initial visit with me we checked a full biochemical evaluation for secondary causes of Osteoporosis. This revealed evidence of primary hyperparathyroidism with labs 05/05/2021 Calcium 10.2, Albumin 4.4, PTH 66 and Vitamin D 45.5. Labs were repeated 10/11/2021 with Calcium 9.8, Albumin 4.3, PTH 76 and Vitamin D 46.2. 24 hour urine calcium was WNL. She had an US of the neck which revealed what appears to be a 1.3 cm right sided parathyroid adenoma adjacent to the right lower pole of the thyroid. She also has a 1.1 cm hypoechoic left lower pole thyroid nodule which I suspect may represent an intrathyroidal parathyroid. She was referred to Dr. Sandoval and underwent a subtotal parathyroidectomy with resection of of 3 parathyroid glands (left inferior, left superior and right inferior) all with pathology confirming hypercellular parathyroid tissue. Biopsy was taken of the right superior parathyroid, with cytology revealing normocellular parathyroid tissue. Has 0 servings of dietary calcium per day. Takes Calcium citrate 600 mg PO daily. Takes 1000 IU of Vitamin D daily. Denies using PPI, anticoagulant, antiepileptic or glucocorticoid medication. Has used prednisone tapers in the past, but no group home glucocorticoid therapy. Has celiac disease and follows a strict gluten free diet. Does weight bearing exercise in the form of walking 5000 steps 5 days per week. Fracture history: Fractured her collar bone. This was a fragility fracture from a fall from standing. 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 Menses was always regular. . She did breastfeed 3-4 hours in total. Menopause was in her 50's, but she does not recall. Did have kidney stones in the past. Denies family history of Osteoporosis or hip fracture. UTD on dental cleanings and sees dentist every 6 months. No planned upcoming dental work or extractions. 2) NTMNG: She had an US of the thyroid completed 10/05/2021 which revealed a multinodular thyroid. She then underwent FNA biopsy of her RMP 1.1 cm thyroid nodule with cytology consistent with a follicular lesion of undetermined significance (bethesda category III). 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 She was referred to Dr. Turner and underwent a L thyroid lobectomy. Surgical pathology revealed incidental finding of 1.5 mm of classic PTC. This was unifocal, with no angioinvasion, no lymphatic invasion, no perineural invasion and no extrathyroidal extension. Margins were uninvolved. 0/4 lymph nodes were positive for metastatic disease. She is seen today in F/U. DEXA: 06/01/2021 FINDINGS: AP SPINE L1-L4: Current: BMD 0.881 g/cm2, Z-score -1.3, T-score -2.5, osteoporosis, 0.6% increase from previous, 8.5% increase from baseline (<5% change is not significant). Prior: BMD 0.876 g/cm2. Baseline: BMD 0.812 g/cm2. LEFT FEMUR, NECK: Current: BMD 0.761 g/cm2, Z-score -0.8, T-score -2.0, osteopenia. Prior: BMD 0.759 g/cm2. Baseline: BMD 0.776 g/cm2. LEFT FEMUR, TOTAL: Current: BMD 0.757 g/cm2, Z-score -1.1, T-score -2.0, osteopenia, 2.9% increase from previous, 3.8% increase from baseline (<5% change is not significant). Prior: BMD 0.736 g/cm2. Baseline: BMD 0.729 g/cm2. Distal Forearm DEXA 09/30/2021: FINDINGS: LEFT FOREARM RADIUS 33%: BMD 0.635 g/cm2, Z-score -1.7, T-score -2.8, osteoporosis. Prior:? Not previously measured. Thyroid US: 10/05/21 Right Thyroid Lobe: 5.2 x 2.1 x 1.7 cm, volume 9.7 mL. Parenchyma: The gland echotexture is homogeneous. Thyroid vascularity is normal. Left Thyroid Lobe: 4.1 x 1.3 x 1.6 cm, volume 4.5 mL. Parenchyma: The gland echotexture is homogeneous. Thyroid vascularity is normal. Isthmus: 0.2 cm in maximum AP dimension. Estimated total number of nodules greater than or equal to 1 cm: 1. 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 Location: Medial mid left. ?? ? Size: 0.5 x 0.2 x 0.2 cm, volume 0.02 mL. ?? ? Nodule characteristics: ?? ? Composition: Spongiform (0). ?? ? Echogenicity: Anechoic (0). ?? ? Shape: Not taller than wide (0). ?? ? Margins: Smooth (0). ?? ? Echogenic Foci: None (0). ?? ? ACR TI-RADS total points: 0 ?? ? ACR TI-RADS category: 1 2. Location: Inferior left. ?? ? Size: 1.1 x 0.6 x 1.0 cm, volume 0.32 mL. ?? ? Nodule characteristics: ?? ? Composition: Solid (2). ?? ? Echogenicity: Very hypoechoic (3). ?? ? Shape: Not taller than wide (0). ?? ? Margins: Smooth (0). ?? ? Echogenic Foci: None (0). ?? ? ACR TI-RADS total points: 5 ?? ? ACR TI-RADS category: 4 NODES: No significant adenopathy noted. Lung the inferior margin of the right and left lobe, a small hypoechoic areas, on the right at 13 x 8 x 6 mm and on the left 6 x 5 x 9 mm. These may reflect a parathyroid glands. Labs: Laboratory Tests 02/20/23 02/20/23 15:20 15:20 Creatinine 0.84 Estimated GFR > 60 25-OH Vitamin D Total 55.9 TSH 4.69 H PTH Intact 24 Calcium (PTH Intact) 9.4 She is currently on levothyroxine 25 micrograms. Status post left lobectomy and parathyroidectomy [facility] Medical History (Updated 04/11/24 @ 15:46 by BENJIE Harrison) FH: cholecystectomy Postoperative hypothyroidism Thyroid cancer Multinodular thyroid Hyperparathyroidism Allergic rhinitis Deviated nasal septum Vitamin D deficiency Osteoporosis Tubular adenoma of colon Celiac disease Emphysema lung Hiatal hernia Impaired fasting glucose Dyslipidemia Surgical History History of lobectomy of thyroid Hx of parathyroidectomy Hx of biopsy History of tonsillectomy and adenoidectomy History of Family History Father Essential hypertension CVA (cerebral vascular accident) Cardiovascular disease Mother Essential hypertension Skin cancer Heart disease Brother FHx: early [place] Social History Housing: House Alcohol intake: former Patient Tobacco Use Status: Former Tobacco user e-Cigarette/Vaping Use: Never Used Current occupational status: employed Cognitive needs: No Hearing needs: No Vision needs: Yes Physical Exam Vital Signs: Last Vital Signs Pulse 77 04/11/24 15:39 BP 130/92 H 04/11/24 15:39 BMI result Body Mass Index 28.1 Const General: cooperative, healthy appearing, no acute distress, well developed, alert and awake; No acute distress Orientation/consciousness: patient oriented x3 HEENT Other: NC/AT, no deformity Head: Yes normal to inspection, Yes normocephalic and Yes atraumatic Mouth: moist mucous membranes Eyes Other: Sclera anicteric, no exophthalmos, proptotis, chemosis or periorbital edema Pupils: Equal, round and reactive pupils present Neck Other: Trachea midline with full ROM. No palpable thyroid tissue. Midline incision healing. Steristrips still in place. No oozing. Mildly tender to palpation. Neck: Yes no lymphadenopathy, Yes trachea midline and Yes supple Resp Effort & Inspection: normal respiratory effort Auscultation: clear to auscultation bilaterally, no rales, no rhonchi and no wheezes Cardio Rate: regular rate Rhythm: regular rhythm Heart sounds: no gallops, no murmurs and no rubs GI Inspection: Yes normal to inspection and No distended Palpation (GI): Soft to palpation and nontender Auscultation: normal bowel sounds Skin Other: No Rashes General skin exam: no rashes or lesions noted Hair: normal Neuro General: patient oriented x3 Cranial nerves: Yes Equal, round and reactive pupils present Deep tendon reflexes (DTR's): Right brachioradialis reflex intensity grade: 2+ and Left brachioradialis reflex intensity grade: 2+ Extrem General: No edema Psych Other: Normal affect with clear speech Speech and movement: Normal speech and movement present Affect: normal affect Thought process: Normal thought process present Assessment & Plan Assessment & Plan (1) Osteoporosis: Code(s): M81.0 - Age-related osteoporosis without current pathological fracture Category: Medical Plan: History of primary hyperparathyroidism status post parathyroidectomy. Other secondary causes of osteoporosis rule out. Patient currently on calcium and vitamin-D supplementation Will recheck DEXA bone density of the hip, spine and distal forearm. If osteoporosis persist, could then consider pharmacologic treatment. (2) Postoperative hypothyroidism: Code(s): E89.0 - Postprocedural hypothyroidism Category: Medical Plan: This 63-year-old white female status post right lobectomy and parathyroidectomy with micro papillary cancer present. Left lobe does not contain the presence of any nodules. She is currently on 25 mcg levothyroxine appears to be clinically euthyroid. Plan is to recheck TSH and free T4 Orders: Orders XR DEXA axial skeleton Today E89.0 - Postprocedural hypothyroidism, M81.0 - Age-related osteoporosis without current pathological fracture Free T4 (Free Thyroxine) Today E89.0 - Postprocedural hypothyroidism, M81.0 - Age-related osteoporosis without current pathological fracture Thyroid Stimulating Hormone Today E89.0 - Postprocedural hypothyroidism, M81.0 - Age-related osteoporosis without current pathological fracture XR DEXA appendicular skeleton Today E89.0 - Postprocedural hypothyroidism, M81.0 - Age-related osteoporosis without current pathological fracture Coding Level of Care Code Est Pt Level 3 (06733) Complex EM visit Add On G2211 Diagnoses Osteoporosis M81.0 Postoperative hypothyroidism E89.0
== END 2024-04-11 16:01 | disposition home or self-care (01) ==
LOC: HO.ENCR 15:38
PROVIDERS: PCP Internal Medicine; Visit Provider Internal Medicine Endocrinology, Diabetes & Metabolism
DX: M81.0 Age-related osteoporosis without current pathological fracture (principal); E89.0 Postprocedural hypothyroidism
CPT/HCPCS: 99213; G2211

== ENCOUNTER 2024-04-11 15:38 | Outpatient (REF) | payer OTHER, SELFPAY ==
[2024-04-11 19:11] LABS: Free T4 (Free Thyroxine) 1.02 ng/dL (0.71-1.85); Thyroid Stimulating Hormone 2.74 uIU/mL (0.32-4.0)
== END 2024-04-11 15:39 | disposition home or self-care (01) ==
LOC: HO.LAB 15:38
PROVIDERS: PCP Internal Medicine; Visit Provider Internal Medicine Endocrinology, Diabetes & Metabolism
DX: E89.0 Postprocedural hypothyroidism (principal); M81.0 Age-related osteoporosis without current pathological fracture
CPT/HCPCS: 36415; 84439; 84443

== ENCOUNTER 2024-05-06 07:51 | Outpatient (AMB) | payer OTHER, SELFPAY ==
--- NOTE | 2024-05-06 08:04 | A.OFFPC_ITS ---
Vital Signs 05/06/24 08:05 Height 5 ft 2 in Weight 159 lb BMI 29.1 BP 140/90 H Blood Pressure Location Rt brachial Position Sitting Pulse 74 Pulse Source Pulse Oximeter Pulse Oximetry (%) 97 Oxygen Delivery Method Room Air Intake Visit Reasons: Annual PE Intake Note: Pt is here today for her PE: last mammogram 11/20/21, bone density scan 09/30/21, papsmear 01/12/23, colonoscopy 03/20/17 Allergies trees Allergy (Mild, Uncoded 05/06/24 08:15) watery eyes, scratchy throat chocholate Allergy (Unknown, Uncoded 05/06/24 08:15) rash Medication List - Last Reconciled 05/06/24 by Anahi Moon MD albuterol sulfate 2.5 mg (3 mL) inhalation Q6H PRN atorvastatin 10 mg PO DAILY calcium citrate-vitamin D3 315 mg-6.25 mcg (250 unit) 2 tabs PO DAILY cholecalciferol (vitamin D3) 25 mcg PO DAILY flunisolide 2 sprays intranasal BID fluticasone propion-salmeterol 250-50 mcg/dose (Advair Diskus) 1 inh inhalation BID levothyroxine 25 mcg PO DAILY montelukast 10 mg PO QAM Tobacco use date assessed: 05/06/24 Fall risk assessment: No Falls in past year Last assessed Fall Risk: 05/06/24 Dental Screening Dental Screen Date: 05/06/24 HPI Annual PE HPI Details 63-year-old lady with history of emphyse ma, celiac disease, hypertension, hyperlipidemia, Post operative hypothyroidism, 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 She had her last last mammogram 11/20/21, bone density scan 09/30/21, papsmear 01/12/23. She has an appointment for her mammogram and bone density scheduled for 05/15/2024, ordered by Dr. Pacheco. Overdue for her screening colonoscopy, done by Dr. Payton. She has not seen Dr. Farfan, her regulatory affairs specialist for treatment of her emphysema for the last 3 years, has been out of her Advair for 1 year and patient states that that medicine was not covered, cost her about 400 dollars to fill. She has had recurrent episodes of cough and wheezing. Has only been using her albuterol inhaler as needed for episodes of cough and bronchospasm. She also has not been seen by her sliver lap tender and ENT specialist Dr. Randall, and has been out of her montelukast for almost a year. Has been using [id number] Flonase nasal spray which affords only temporary relief. She sees endocrine clinic for treatment of her hypothyroidism and osteoporosis, has an order for repeat bone density scan and recent thyroid levels. Patient complaining of urinary frequency and urgency, no burning on urination, but accompanied by suprapubic discomfort. [facility] Medical History (Updated 05/06/24 @ 17:56 by Anahi Moon MD) History of cholecystitis History of adenomatous polyp of colon FH: cholecystectomy Postoperative hypothyroidism Thyroid cancer Multinodular thyroid Hyperparathyroidism Allergic rhinitis Deviated nasal septum Vitamin D deficiency Osteoporosis Tubular adenoma of colon Celiac disease Emphysema lung Hiatal hernia Impaired fasting glucose Dyslipidemia Surgical History (Updated 05/06/24 @ 09:00 by Anahi Moon MD) History of laparoscopic cholecystectomy History of lobectomy of thyroid Hx of parathyroidectomy Hx of biopsy History of tonsillectomy and adenoidectomy History of Family History Father Essential hypertension CVA (cerebral vascular accident) Cardiovascular disease Mother Essential hypertension Skin cancer Heart disease Brother FHx: early [place] Social History Housing: House Alcohol intake: former Patient Tobacco Use Status: Former Tobacco user e-Cigarette/Vaping Use: Never Used Current occupational status: employed Cognitive needs: No Hearing needs: No Vision needs: Yes Questionnaire PHQ-9 Over the last 2 weeks, how often have you been bothered by any of the following problems? 8. Moving or speaking so slowly that other people could have noticed. Or the opposite - being so fidgety or restless that you have been moving around a lot more than usual: not at all [id number] - PHQ-9 Billing: Patient declined-do not bill Source: Developed by Drs. Anurag Whitaker, Marine Ibarra, Michael Root and colleagues, with an educational donya from [employer]. Thrive Questionnaire Date Thrive assessed: 05/06/24 I am a: Patient What is your living situation today?: I have a steady place to live Within the past 12 months, did the food you bought not last and you didn't have the money to get more?: Sometimes True Within the past 12 months, did you worry whether your food would run out before you got money to buy more?: Sometimes True Do you have trouble paying for medicines?: No Do you have trouble getting transportation to medical appointments?: No Do you have trouble paying your heating and electricity bill?: No Do you have trouble taking care of your child, family member or friend?: No Do you have trouble with day-to-day activities such as bathing, preparing meals, shopping, managing finances, etc.?: No Are you currently unemployed and looking for a job?: No Are you interested in more education?: No THRIVE Score: 2 AUDIT C Alcohol Use Questionnaire (AUDIT-C) 1. How often do you have a drink containing alcohol?: Monthly or less 2. How many drinks containing alcohol do you have on a typical day when you are drinking?: 1 or 2 3. How often do you have six or more drinks on one occasion?: Never Total Score: 1 Score Reviewed/Action Taken: Yes KWAKU-7 AMB Questionnaire KWAKU-7 Date KWAKU - 7 assessed: 05/06/24 Feeling nervous, anxious, or on edge: 0 = Not at all Not being able to stop or control worryin = Not at all Worrying too much about different things: 0 = Not at all Trouble relaxin = Not at all Being so restless that it is hard to sit still: 0 = Not at all Becoming easily annoyed or irritable: 0 = Not at all Feeling afraid as if something awful might happen: 0 = Not at all Total KWAKU-7 score (0-4 normal; 5-9 mild; 10-14 moderate; 15-21 severe): 0 Source: Developed by Drs. Anurag Whitaker, Marine Ibarra, Michael Root and colleagues, with an educational donya from [employer]. KWAKU-7 Assessment Billing KWAKU-7 Assessment Tool: KWAKU-7 Assessment 81823 Review of Systems Const Denies daytime sleepiness, Reports difficulty sleeping (Due to frequent coughing), Reports fatigue, Denies fever(s), Reports headache(s) and Denies poor appetite Eyes Details: She sees [facility], seen last 07/2024 for treatment of glaucoma OU status post laser treatment Reports no additional complaints ENT Denies change in voice, Denies vertigo, Denies dizziness, Reports otalgia, Reports headache(s), Denies epistaxis, Reports nasal congestion, Denies disequilibrium, Reports post nasal drip, Reports sinus pain and Denies sore throat Card Denies chest pain, Denies rapid heart rate, Denies irregular heart rhythm and Reports dyspnea on exertion Resp Reports chest congestion, Reports cough, Reports dyspnea on exertion and Reports wheezing GI Reports no additional complaints Reports as per HPI Musc Reports no additional complaints Skin/Breast Denies breast swelling, Denies breast pain, Denies breast mass and Reports dry skin Neuro Denies vertigo, Denies dizziness, Reports headache(s) and Denies disequilibrium Psych Reports no additional complaints Endo Reports fatigue Darci/Lymph Reports no additional complaints Aller/Immun Reports wheezing Physical exam (Primary Care) Vital Signs: Last Vital Signs Pulse 74 05/06/24 08:05 BP 140/90 H 05/06/24 08:05 Pulse Ox 97 05/06/24 08:05 Oxygen Delivery Method Room Air 05/06/24 08:05 BMI result Body Mass Index 29.1 Tobacco/Smoking Status: Tobacco use Status Tobacco use date assessed 05/06/24 05/06/24 08:08 Patient Tobacco Use Status Former Tobacco user 05/06/24 08:08 e-Cigarette/Vaping Use Never Used 05/06/24 08:08 Thrive Assessment: Date of Thrive Assessment Date Thrive assessed 05/06/24 05/06/24 08:14 Advance Care Planning discussion: Completed/Scanned Date of discussion: 05/06/24 Who was present: Patient Forms completed: Health Care Proxy and MOLST Time spent: 16-45 minutes Actual minutes spent: 16 Const General: comfortable, no acute distress, alert and awake Nutritional Appearance: average body habitus Orientation/consciousness: patient oriented x3 Limitations: no limitations HENMT Head: Yes normocephalic and Yes atraumatic Ears: hearing grossly normal bilaterally, external ears normal and TM's normal bilaterally General nose exam: Normal external nose present, Normal nasal mucous membranes and turbinates present, No nasal discharge present and no nasal discharge noted Face and sinus: Yes face symmetric and Yes sinus tenderness (maxillary) Mouth: Normal oral and palatal mucosa present, tongue normal, oropharynx normal and moist mucous membranes Eyes General: appearance normal, both eyes and all related structures Conjunctivae: conjunctivae normal Sclerae: sclerae normal Pupils: Equal, round and reactive pupils present EOM: EOMs intact bilaterally Direct Ophthalmoscopy: normal light reflex Neck Neck: Yes full ROM, Yes no lymphadenopathy and Yes supple Chest Chest palpation & inspection: normal inspection of the chest and normal palpation of entire chest wall Breast/axilla inspection: normal inspection of the breasts Breast/axilla palpation: normal palpation of the breasts Resp Other: Diminished breath sounds on both lung staley, diffuse expiratory wheezing present Effort & Inspection: normal respiratory effort and able to speak in complete sentences Cardio Palpation: normal PMI Rate: regular rate Rhythm: regular rhythm Heart sounds: S1 normal heart sound present and S2 normal heart sound present Bruits: no abdominal aortic bruits GI Inspection: Yes normal to inspection Palpation (GI): No Abdominal aortic bruit present, Soft to palpation, nontender, no guarding and no masses Auscultation: normal bowel sounds General: Yes no CVA tenderness Back/Spine/Pelvis Back: no CVA tenderness and No back tenderness Skin General skin exam: no rashes or lesions noted Neuro General: patient oriented x3, gait normal, tone normal, moves all extremities, Normal light touch and pain sensation, no focal motor deficits and CN's II-XI intact bilaterally Cranial nerves: Yes Equal, round and reactive pupils present Gait exam (Neuro): Normal gait present Motor exam (neuro): 5/5 motor strength present throughout Extrem General: Yes normal to inspection, Yes full ROM, Yes no joint enlargement, Yes no clubbing, cyanosis or edema, Yes no calf tenderness and Yes normal gait Psych Appearance: grossly normal and well kempt Mental Status: mental status grossly normal Speech and movement: Normal speech and movement present Affect: normal affect Attitude: cooperative Thought process: Normal thought process present Thought content: Normal thought content present Results AMB Urinalysis, Automated UA Leukoctes 0 Azalia/uL Last Edit by Fallon Gibbons CMA on 05/06/24 08:52 UA Nitrite Negative Last Edit by Fallon Gibbons CMA on 05/06/24 08:52 UA Urobilinogen 0 mg/dL Last Edit by Fallon Gibbons CMA on 05/06/24 08:52 UA Protein 0 mg/dL Last Edit by Fallon Gibbons CMA on 05/06/24 08:52 UA pH 6.0 Last Edit by Fallon Gibbons CMA on 05/06/24 08:52 UA Blood 25 Jose/uL Last Edit by Fallon Gibbons CMA on 05/06/24 08:52 UA Specific [place] 1.015 Last Edit by Fallon Gibbons CMA on 05/06/24 08:52 UA Ketone Negative Last Edit by Fallon Gibbons CMA on 05/06/24 08:52 UA Bilirubin 0 mg/dL Last Edit by Fallon Gibbons CMA on 05/06/24 08:52 UA Glucose 0 mg/dL Last Edit by Fallon Gibbons CMA on 05/06/24 08:52 Results Reviewed Results Reviewed: Laboratory Last Values Urine pH (Auto) 6.0 05/06/24 08:49 Specific [place] (Auto) 1.015 05/06/24 08:49 Urine Protein (Auto) 0 mg/dL 05/06/24 08:49 Glucose (UA)(Auto) 0 mg/dL 05/06/24 08:49 Urine Ketones (Auto) Negative 05/06/24 08:49 Urine Blood (Auto) 25 Jose/uL 05/06/24 08:49 Urine Nitrite (Auto) Negative 05/06/24 08:49 Urine Bilirubin (Auto) 0 mg/dL 05/06/24 08:49 Urine Urobilinogen (Auto) 0 mg/dL 05/06/24 08:49 Leukocyte Esterase (Auto) 0 Azalia/uL 05/06/24 08:49 Assessment and Plan Assessment & Plan (1) Annual visit for general adult medical examination with abnormal findings: Code(s): Z00.01 - Encounter for general adult medical examination with abnormal findings Plan: Will check appropriate labs. Recommended dental visit every 6 months and regular eye exams, at least every 2 years. Take adequate calcium in diet and vitamin-D 3 at 2000 IU per cap once a day, in addition to weight-bearing exercises to help maintain good muscle tone and weight control. Instructed to do self-breast exam, and recommended to get yearly mammogram, patient states she will schedule appointment. Does not want to get COVID booster, reminded to get yearly flu shot, up-to-date with Tdap, and reminded to get Prevnar 20 on next visit, already received Pneumovax 23 (2) Emphysema lung: Comment: Seen by Dr. Farfan Code(s): J43.9 - Emphysema, unspecified Qualifiers: Emphysema type: unspecified Qualified Code(s): J43.9 - Emphysema, unspecified Plan: Has not been seen by her pulmonary doctor, Dr. Bustos in the last 3 years. Advised to schedule follow-up appointment with him. Referral ordered continue with Advair Diskus, and albuterol inhaler has had her PCV 23 vaccine, gets yearly flu shots, does not want to get COVID booster reminded to get Prevnar 20 on next visit once she is feeling better (3) Dyslipidemia: Code(s): E78.5 - Hyperlipidemia, unspecified Plan: Fasting lipid panel ordered . Continue atorvastatin 10 mg daily , in addition to adherence to low-cholesterol diet and regular exercise, at least 30 minutes 3 to 4 times a week. Advised patient to make healthy food choices, eat more fruits, vegetables, whole grains, wild caught fish and low-fat dairy. Limit amount of meat and fried or fatty food products, as well as processed foods and fast foods. (4) Impaired fasting glucose: Code(s): R73.01 - Impaired fasting glucose Plan: Hemoglobin A1c ordered and basic metabolic panel. Your previous fasting blood sugars were elevated above 100 mg/dL. Impaired glucose metabolism increases the risk for developing diabetes mellitus type 2, as well as heart attack and stroke later on. Lifestyle changes that promotes weight loss, healthy eating habits, and regular exercise are important, and can prevent the progression to diabetes (5) Osteoporosis: Code(s): M81.0 - Age-related osteoporosis without current pathological fracture Qualifiers: Osteoporosis type: age-related Presence of current pathological fracture: without current pathological fracture Qualified Code(s): M81.0 - Age- related osteoporosis without current pathological fracture Plan: Currently followed by Dr. Pacheco. (6) Postoperative hypothyroidism: Code(s): E89.0 - Postprocedural hypothyroidism Plan: On levothyroxine 25 mcg daily in a.m., followed by endocrine clinic (7) History of adenomatous polyp of colon: Code(s): Z86.010 - Personal history of colonic polyps Plan: Overdue for her repeat screening colonoscopy, history of adenomatous polyp on previous exam. Referred back to Dr. Payton for her colonoscopy procedure (8) Acute exacerbation of chronic obstructive pulmonary disease: Code(s): J44.1 - Chronic obstructive pulmonary disease with (acute) exacerbation Plan: Placed on Augmentin 875 mg per tablet to take 1 every 12 hours for 10 days and also given a prescription for prednisone taper, to take 40 mg per tablet on days 1-2, 30 mg on days 3 and 4, 20 mg on days 5 and 6 and 10 mg on days 7 and 8 advised to take it in the morning always with a glass of milk or a meal. Referral back to Dr. Schaefer who goal for follow-up (9) Microscopic hematuria: Code(s): R31.29 - Other microscopic hematuria Plan: Urine cytology or (10) Cough present for greater than 3 weeks: Code(s): R05.8 - Other specified cough Plan: Ordered chest x-ray, empirically started on Augmentin (11) Advanced directives, counseling/discussion: Code(s): Z71.89 - Other specified counseling Plan: Initiated the conversation about Advanced Directives. Advanced Directives help patients prepare for current and future decisions about their medical treatment and place of care. Discussed with patient that it is a process where a patients current condition and prognosis are reviewed, their wishes for information regarding their illness are elicited, and likely medical dilemmas are presented and options discussed. The form can be amended as needed, reviewed yearly and make changes as needed (12) Celiac disease: Comment: Followed by Dr. Payton Code(s): K90.0 - Celiac disease Plan: Followed by Dr. Peralta, continued avoidance of gluten Orders: Orders Alanine Aminotransferase Today E78.5 - Hyperlipidemia, unspecified, R73.01 - Impaired fasting glucose Aspartate Amino Transferase Today E78.5 - Hyperlipidemia, unspecified, R73.01 - Impaired fasting glucose Hemoglobin A1c Today E78.5 - Hyperlipidemia, unspecified, R73.01 - Impaired fasting glucose Basic Metabolic Panel Fasting Today E78.5 - Hyperlipidemia, unspecified, R73.01 - Impaired fasting glucose Lipid Panel Today E78.5 - Hyperlipidemia, unspecified, R73.01 - Impaired fasting glucose Urine Cytology Today R31.29 - Other microscopic hematuria AMB Urinalysis Automated Today Z13.9 - Encounter for screening, unspecified XR chest 2V Today R05.8 - Other specified cough Complete Blood Count Auto Diff Today R05.8 - Other specified cough Referrals Pulmonology Referral J43.9 - Emphysema, unspecified Gastroenterology Referral Z86.010 - Personal history of colonic polyps Medications: New fluticasone propion-salmeterol 250-50 mcg/dose (Advair Diskus) 1 inh inhalation BID 60 ea 0RF amoxicillin-pot clavulanate 875-125 mg 1 tab PO Q12H 20 tabs 0RF J44.1 - Chronic obstructive pulmonary disease with (acute) exacerbation prednisone see taper instructions - take 40 mg on days 1 and 2, 30 mg on days 3 and 4, 20 mg on days 5 and 6, and 10 mg on days 7 and 8 10 mg PO DIRECTED 20 tabs 0RF Refilled montelukast 10 mg PO QAM 90 tabs 1RF Coding Level of Care Code Est Pt Level 4 (07056) Est Pt Prev Care >65y(66588) Diagnoses Annual visit for general adult medical examination with abnormal findings Z00.01 Pulmonary emphysema, unspecified emphysema type J43.9 Emphysema type: unspecified Dyslipidemia E78.5 Impaired fasting glucose R73.01 Age-related osteoporosis without current pathological fracture M81.0 Osteoporosis type: age-related Presence of current pathological fracture: without current pathological fracture Postoperative hypothyroidism E89.0 History of adenomatous polyp of colon Z86.010 Acute exacerbation of chronic obstructive pulmonary disease J44.1 Microscopic hematuria R31.29 Cough present for greater than 3 weeks R05.8 Advanced directives, counseling/discussion Z71.89 Celiac disease K90.0 Additional Codes KWAKU-7 Assessment Billing - KWAKU-7 Assessment Tool: KWAKU-7 Assessment 82543 ([id number]) Vital Signs *Quality* - Advance Care Planning discussion: Completed/Scanned ([id number]) Vital Signs *Quality* - Time spent: 16-45 minutes ([id number])
[2024-05-06 08:05] VITALS: BP 140/90; PULSE 74; O2SAT 97; BMI 29.1
== END 2024-05-06 09:18 | disposition home or self-care (01) ==
PROVIDERS: PCP Internal Medicine; Visit Provider Internal Medicine
DX: Z00.00 Encounter for general adult medical examination without abnormal findings (principal); J43.9 Emphysema, unspecified; J44.1 Chronic obstructive pulmonary disease with (acute) exacerbation; E78.5 Hyperlipidemia, unspecified; M81.0 Age-related osteoporosis without current pathological fracture; R73.01 Impaired fasting glucose; R31.29 Other microscopic hematuria; E89.0 Postprocedural hypothyroidism; Z86.010 Personal history of colon polyps; R05.8 Other specified cough; Z71.89 Other specified counseling; K90.0 Celiac disease
CPT/HCPCS: 1123F; 81003; 99214; 99397; 99497

== ENCOUNTER 2024-05-06 08:55 | Outpatient (REF) | payer OTHER, SELFPAY ==
[2024-05-06 10:24] LABS: Urine Cytology See Pathology rpt
== END 2024-05-06 08:56 | disposition home or self-care (01) ==
LOC: HO.LAB 08:55
PROVIDERS: Visit Provider Internal Medicine
DX: R31.29 Other microscopic hematuria (principal)
CPT/HCPCS: 88112

== ENCOUNTER 2024-05-06 09:05 | Outpatient (REF) | payer OTHER, SELFPAY ==
--- NOTE | ~2024-05-06 | XR_ITS ---
EXAMINATION: XR CHEST CLINICAL INFORMATION: Cough COMPARISON: 01/08/2022 along with older chest radiographs dating back to 07/30/2012 TECHNIQUE: 2 views of the chest were obtained. FINDINGS: Again seen are mildly hyperinflated lungs suggesting COPD. Heart size normal without CHF. Some right suprahilar streaky densities are seen which have been present on prior studies likely secondary to scarring/overlying opacities. There is an old healed right midclavicular fracture. No suspicious lung masses, consolidations or pleural effusions. XR/XR chest 2V IMPRESSION: No acute intrathoracic disease. COPD.
== END 2024-05-06 09:06 | disposition home or self-care (01) ==
LOC: HO.HMGCX 09:05
PROVIDERS: PCP Internal Medicine; Visit Provider Internal Medicine
DX: R05.8 Other specified cough (principal)
CPT/HCPCS: 71046

== ENCOUNTER 2024-05-15 14:07 | Outpatient (REF) | payer OTHER, SELFPAY ==
--- NOTE | ~2024-05-15 | MM_ITS ---
EXAMINATION: BONE DENSITOMETRY CLINICAL INDICATION: Postprocedural hypothyroidism. COMPARISON: Previous BD dated 06/01/2021 and baseline BD dated 05/07/2010 for the spine and left hip; the baseline for the left forearm radius 33% is 09/30/2021. TECHNIQUE: Using a [employer] DXA system (software version: 14.10) manufactured by [employer], dual-energy x-ray absorptiometry was performed of the lumbar spine and left hip and left forearm radius 33%. The images are of good technical quality. Summary results are attached. FINDINGS: LEFT FEMUR, NECK: Current: BMD 0.877 g/cm2, Z-score 0.2, T-score -1.2, osteopenia. Prior: BMD 0.761 g/cm2. Baseline: BMD 0.776 g/cm2. LEFT FEMUR, TOTAL: Current: BMD 0.795 g/cm2, Z-score -0.6, T-score -1.7, osteopenia, 5.0% increase from previous, 9.1% increase from baseline (<5% change is not significant). Prior: BMD 0.757 g/cm2. Baseline: BMD 0.729 g/cm2. AP SPINE L1-L4: Current: BMD 0.865 g/cm2, Z-score -1.2, T-score -2.6, osteoporosis, 1.8% decrease from previous, 6.5% increase from baseline (<5% change is not significant). Prior: BMD 0.881 g/cm2. Baseline: BMD 0.812 g/cm2. LEFT FOREARM RADIUS 33%: BMD 0.622 g/cm2, Z-score -1.5, T-score -2.9, osteoporosis, 2.0% decrease from baseline (<5% change is not significant). Baseline: BMD 0.635 g/cm2. IDENTIFIED RISK FACTORS: History of fracture (adult), menopause, osteoporosis. HISTORY OF FRACTURE: Other. MEDICATIONS: Calcium, vitamin D. MM/XR DEXA appendicular skeleton IMPRESSION: 1. DIAGNOSIS: Osteoporosis based on the lowest T-score value of -2.9 in the forearm radius 33% applying World Health Organization criteria. 2. 10-YEAR FRACTURE RISK PREDICTION, FRAX: According to the guidelines, FRAX calculation should only be performed on patients in the osteopenia bone density category. Therefore, FRAX was not performed on this patient. 3. Treatment Recommendations: NOF guidelines recommend consideration for treatment in postmenopausal women and men age 50 and older presenting with the following: -A hip or vertebral (clinical or morphometric) fracture. -T-score less than or equal to -2.5 at the femoral neck or spine after appropriate evaluation to exclude secondary causes. -Low bone mass at the hip or spine and a 10-year fracture probability by FRAX of greater than or equal to 3% for hip fracture or greater than or equal to 20% for major osteoporotic fracture based on the [place] adapted WHO algorithm. 4. Other Recommendations: All treatment decisions require clinical judgment and consideration of individual patient factors, including patient preferences, comorbidities, previous drug use, risk factors not captured in the FRAX model (e.g. frailty, falls, vitamin D deficiency, increased bone turnover, interval significant decline in bone density) and possible under or overestimation of fracture risk by FRAX. Additional medical evaluation for secondary cause of low bone mineral density may be appropriate. FUTURE SCAN RECOMMENDATION: People with diagnosed cases of osteoporosis or at high risk for fracture should have regular bone mineral density tests. For patients eligible for Medicare, routine testing is allowed once every 2 years. The testing frequency can be increased to one year for patients who have rapidly progressing disease, those who are receiving or discontinuing medical therapy to restore bone mass, or have additional risk factors.
== END 2024-05-15 14:08 | disposition home or self-care (01) ==
LOC: HO.MAMMO 14:07
PROVIDERS: PCP Internal Medicine; Visit Provider Internal Medicine Endocrinology, Diabetes & Metabolism
DX: M81.0 Age-related osteoporosis without current pathological fracture (principal); Z12.31 Encounter for screening mammogram for malignant neoplasm of breast
CPT/HCPCS: 77063; 77067; 77081

== ENCOUNTER → 2024-05-15 14:15 | Outpatient (BNV) | payer OTHER, SELFPAY | PROVIDERS: PCP Internal Medicine; Visit Provider Radiology Diagnostic Radiology | DX: Z12.31 Encounter for screening mammogram for malignant neoplasm of breast (principal) | CPT/HCPCS: 77063; 77067 ==

== ENCOUNTER 2024-07-06 08:17 | Outpatient (REF) | payer OTHER, SELFPAY ==
[2024-07-06 08:25] LABS: MANUAL DIFF FLAG NO
[2024-07-06 08:39] LABS: Basophils Absolute Auto 0.1 X10*3/uL (0.0-0.2); Eosinophils Absolute Auto 0.5 X10*3/uL (0.0-0.4); Eosinophils Percent Auto 7.5 % (0-4); Hematocrit 44.1 % (37.0-47.0); Hemoglobin 14.3 g/dl (12.0-16.0); Imm Gran Abs Auto 0.02 X10*3/uL (0.00-0.03); Imm Gran Pct Auto 0.3 % (0.0-0.4); Lymphocytes Percent Auto 30.1 % (20-40); Mean Corpuscular HGB Conc 32.4 g/dl (31.0-35.0); Mean Corpuscular Hemoglobin 28.8 pg (27.0-33.0); Mean Corpuscular Volume 88.9 fL (80.0-98.0); Mean Platelet Volume 8.9 fL (9.4-12.3); Monocytes Absolute Auto 0.8 X10*3/uL (0.1-1.2); Monocytes Percent Auto 11.5 % (2-11); Neutrophils Absolute Auto 3.3 x10*3/uL (2.0-8.3); Neutrophils Percent Auto 49.6 % (45-73); Platelet Count 475 X10*3/uL (160-400); Red Blood Count 4.96 X10*6/uL (4.20-5.50); Red Cell Distribution Width 13.3 % (11.0-16.0); White Blood Count 6.7 X10*3/uL (4.8-10.8)
[2024-07-06 08:56] LABS: Estimated Average Glucose 117 mg/dL; Hemoglobin A1c % 5.7 % (<6.0); Total Hemoglobin (HGBA1C) 3591.7498 umol/L
[2024-07-06 09:14] LABS: Alanine Aminotransferase 22 U/L (0-31); Anion Gap 10 (12-20); Aspartate Amino Transferase 21 U/L (5-31); Blood Urea Nitrogen 12 mg/dL (9-16); Calcium 9.1 mg/dL (8.4-10.2); Carbon Dioxide 27 mmol/L (22-29); Chloride 108 mmol/L (96-108); Cholesterol 180 mg/dL (<200); Estimated Glomerular Filt Rate > 60; Glucose Fasting 105 mg/dL (60-99); HDL Cholesterol 63 mg/dL (>40); LDL Cholesterol Calculated 103 mg/dL (<100); Potassium 3.9 mmol/L (3.3-5.1); Sodium 141 mmol/L (135-145); Triglycerides 73 mg/dL (<150)
== END 2024-07-06 08:18 | disposition home or self-care (01) ==
LOC: HO.LAB 08:17
PROVIDERS: PCP Internal Medicine; Visit Provider Internal Medicine
DX: R73.01 Impaired fasting glucose (principal); E78.5 Hyperlipidemia, unspecified; R05.8 Other specified cough
CPT/HCPCS: 36415; 80048; 80061; 83036; 84450; 84460; 85025

== ENCOUNTER 2024-08-07 11:46 | Outpatient (AMB) | payer OTHER, SELFPAY ==
[2024-08-07 11:47] VITALS: BP 122/82; PULSE 77; O2SAT 96; BMI 29.1
--- NOTE | 2024-08-07 11:47 | MHC.PC.OV ---
Vital Signs 08/07/24 11:47 Height 5 ft 2 in Weight 159 lb BMI 29.1 BP 122/82 Blood Pressure Location Rt brachial Position Sitting Pulse 77 Pulse Source Pulse Oximeter Pulse Oximetry (%) 96 Oxygen Delivery Method Room Air Intake Visit Reasons: 3 month follow up Lipids Intake Note: Pt is here today for her 3mo.f/u lipids Allergies trees Allergy (Mild, Uncoded 08/07/24 12:18) watery eyes, scratchy throat chocholate Allergy (Unknown, Uncoded 08/07/24 12:18) rash Medication List - Last Reconciled 08/07/24 by Anahi Moon MD albuterol sulfate 2.5 mg (3 mL) inhalation Q6H PRN atorvastatin 10 mg PO DAILY calcium 750 mg cholecalciferol (vitamin D3) 25 mcg PO DAILY fluticasone propion-salmeterol 250-50 mcg/dose (Advair Diskus) 1 inh inhalation BID levothyroxine 25 mcg PO DAILY 90 days magnesium citrate 400 mg PO DAILY magnesium oxide 400 mg PO DAILY montelukast 10 mg PO QAM Tobacco use date assessed: 08/07/24 Fall risk assessment: No Falls in past year Last assessed Fall Risk: 08/07/24 Dental Screening Dental Screen Date: 08/07/24 Did you have a dental visit in the last 12 months?: No Did you have a dental problem in the last 6 months where you did not have access to dental care?: No Was dental information given to patient?: Patient has dentist HPI 3 month follow up Lipids HPI Details 64-year-old lady here today for follow-up on her elevated lipids. Currently taking atorvastatin 10 mg daily and has been trying to follow recommended diet. [facility] Medical History (Updated 08/07/24 @ 12:36 by Anahi Moon MD) Nocturnal leg cramps History of cholecystitis History of adenomatous polyp of colon FH: cholecystectomy Postoperative hypothyroidism Thyroid cancer Multinodular thyroid Hyperparathyroidism Allergic rhinitis Deviated nasal septum Vitamin D deficiency Osteoporosis Tubular adenoma of colon Celiac disease Emphysema lung Hiatal hernia Impaired fasting glucose Dyslipidemia Surgical History History of laparoscopic cholecystectomy History of lobectomy of thyroid Hx of parathyroidectomy Hx of biopsy History of tonsillectomy and adenoidectomy History of Family History Father Essential hypertension CVA (cerebral vascular accident) Cardiovascular disease Mother Essential hypertension Skin cancer Heart disease Brother FHx: early [place] Social History Housing: House Alcohol intake: former Patient Tobacco Use Status: Former Tobacco user e-Cigarette/Vaping Use: Never Used Current occupational status: employed Cognitive needs: No Hearing needs: No Vision needs: Yes Questionnaire PHQ-9 Over the last 2 weeks, how often have you been bothered by any of the following problems? 1. Little interest or pleasure in doing things: not at all 2. Feeling down, depressed, or hopeless: not at all 3. Trouble falling or staying asleep, or sleeping too much: not at all 4. Feeling tired or having little energy: not at all 5. Poor appetite or overeating: not at all 6. Feeling bad about yourself - or that you are a failure or have let yourself or your family down: not at all 7. Trouble concentrating on things, such as reading the newspaper or watching television: not at all 8. Moving or speaking so slowly that other people could have noticed. Or the opposite - being so fidgety or restless that you have been moving around a lot more than usual: not at all 9. Thoughts that you would be better off or of hurting yourself in some way: not at all Total score: 0 Depression Screening Interpretation: Negative Depression Screening Done: Yes 66862 - PHQ-9 Billing: Yes Source: Developed by Drs. Anurag Whitaker, Marine Ibarra, Michael Root and colleagues, with an educational donya from [employer]. Thrive Questionnaire Date Thrive assessed: 08/07/24 I am a: Patient What is your living situation today?: I have a steady place to live Within the past 12 months, did the food you bought not last and you didn't have the money to get more?: I choose not to answer this question Within the past 12 months, did you worry whether your food would run out before you got money to buy more?: I choose not to answer this question Do you have trouble paying for medicines?: I choose not to answer this question Do you have trouble getting transportation to medical appointments?: I choose not to answer this question Do you have trouble paying your heating and electricity bill?: I choose not to answer this question Do you have trouble taking care of your child, family member or friend?: I choose not to answer this question Do you have trouble with day-to-day activities such as bathing, preparing meals, shopping, managing finances, etc.?: I choose not to answer this question Are you currently unemployed and looking for a job?: I choose not to answer this question Are you interested in more education?: I choose not to answer this question Please select the resources that you would like help with: None Currently or been in a relationship where the following occur: No concerns reported THRIVE Score: 0 AUDIT C Alcohol Use Questionnaire (AUDIT-C) 1. How often do you have a drink containing alcohol?: Never Total Score: 0 KWKAU-7 AMB Questionnaire KWAKU-7 Date KWAKU - 7 assessed: 08/07/24 Feeling nervous, anxious, or on edge: 0 = Not at all Not being able to stop or control worryin = Not at all Worrying too much about different things: 0 = Not at all Trouble relaxin = Not at all Being so restless that it is hard to sit still: 0 = Not at all Becoming easily annoyed or irritable: 0 = Not at all Feeling afraid as if something awful might happen: 0 = Not at all Total KWAKU-7 score (0-4 normal; 5-9 mild; 10-14 moderate; 15-21 severe): 0 Source: Developed by Drs. Anurag Whitaker, Marine Ibarra, Michael Root and colleagues, with an educational donya from [employer]. KWAKU-7 Assessment Billing KWAKU-7 Assessment Tool: KWAKU-7 Assessment 89361 Review of Systems Const Denies daytime sleepiness, Denies fever(s) and Denies poor appetite Eyes Details: She sees [facility], seen last 07/2024 for treatment of glaucoma OU status post laser treatment Reports no additional complaints ENT Denies change in voice, Denies vertigo, Denies dizziness, Denies epistaxis, Denies disequilibrium and Denies sore throat Card Denies chest pain, Denies rapid heart rate and Denies irregular heart rhythm Resp Reports no additional complaints GI Reports no additional complaints Musc Reports no additional complaints Skin/Breast Denies dry skin Neuro Denies vertigo, Denies dizziness and Denies disequilibrium Endo Reports no additional complaints Physical exam (Primary Care) Vital Signs: Last Vital Signs Pulse 77 08/07/24 11:47 BP 122/82 08/07/24 11:47 Pulse Ox 96 08/07/24 11:47 Oxygen Delivery Method Room Air 08/07/24 11:47 BMI result Body Mass Index 29.1 Tobacco/Smoking Status: Tobacco use Status Tobacco use date assessed 08/07/24 08/07/24 11:56 Patient Tobacco Use Status Former Tobacco user 08/07/24 11:48 e-Cigarette/Vaping Use Never Used 08/07/24 11:48 PHQ-9: PHQ-9 Score PHQ-9: Total score 0 08/07/24 12:34 Depression Screening Interpretation: Negative Thrive Assessment: Date of Thrive Assessment Date Thrive assessed 08/07/24 08/07/24 11:56 Currently or been in a relationship where the following occur: No concerns reported Const General: comfortable, no acute distress, alert and awake Nutritional Appearance: average body habitus Orientation/consciousness: patient oriented x3 HENMT Head: Yes normocephalic Ears: hearing grossly normal bilaterally General nose exam: Normal external nose present, Normal nasal mucous membranes and turbinates present and no nasal discharge noted Face and sinus: Yes face symmetric and Yes sinus tenderness (maxillary) Mouth: Normal oral and palatal mucosa present and moist mucous membranes Neck Neck: Yes full ROM, Yes no lymphadenopathy and Yes supple Resp Other: Diminished breath sounds on both lung staley, diffuse expiratory wheezing present Effort & Inspection: normal respiratory effort and able to speak in complete sentences Cardio Palpation: normal PMI Rate: regular rate Rhythm: regular rhythm Heart sounds: S1 normal heart sound present and S2 normal heart sound present General: Yes no CVA tenderness Back/Spine/Pelvis Back: no CVA tenderness and No back tenderness Neuro General: patient oriented x3, gait normal, tone normal, moves all extremities, Normal light touch and pain sensation, no focal motor deficits and CN's II-XI intact bilaterally Extrem General: Yes normal to inspection, Yes full ROM, Yes no joint enlargement, Yes no clubbing, cyanosis or edema, Yes no calf tenderness and Yes normal gait Immunizations pneumoc 20-gómez conj-dip cr(PF) 0.5 mL IM syringe Performing Provider: Anahi Moon MD [place]forming [place] [facility] [place] Administered by: Fallon Gibbons CMA on 08/07/24 12:45 Dose Route Admin Location Dispensed Lot Number Expiration Date [facility] Set Up And Lay Out Inspector 0.5 mL IM Left Deltoid 0.5 mL [id number] 10/15/25 3121-0561-94 WYETH/PFIZER VIS Given Date VIS Provided VIS Publication Date 08/07/24 Single Vaccine 21 Eligibility Eligibility Date Funding Source Not [facility] Eligible 08/07/24 Private Results Reviewed Results Reviewed: Name: Gracie Blakely Age/Sex: 63/F : 1960 Unit#: [id number] Attend Dr: Anahi Moon MD Re07/06/24 Status: DEP [facility]F [facility] Disch: SPEC : [id number] CANDY: 07/06/24 STATUS: COMP REQ : [id number] RECD: 07/06/[address]: Anahi Moon MD COMP: 07/06/24 ENTERED: 07/06/[address]: ORDERED: Met Prof Fast, AST, ALT, Lipid Panel Test Result Flag Reference Sodium 141 135-145 mmol/L Potassium 3.9 3.3-5.1 mmol/L CL 108 96-108 mmol/L CO2 27 22-29 mmol/L Gap 10 L 12-20 BUN 12 9-16 mg/dL Creat 0.77 0.5-1.4 mg/dL EGFR > 60 NOTE: For -[place]zerbaij[place] individuals, multiply the result by 1.210. Chronic Kidney Disease: Estimated GFR < 60 mL/min/1.73m2 Severe Kidney Disease: Estimated GFR < 15 mL/min/1.73m2 FBS 105 H 60-99 mg/dL A fasting glucose from 100-125 mg/dl is considered impaired (pre-diabetes). CA 9.1 8.4-10.2 mg/dL AST (GOT) 21 5-31 U/L ALT (GPT) 22 0-31 U/L Triglyceride 73 <150 mg/dL Desirable Triglyceride: less than 150 mg/dL Borderline High Triglyceride 150-199 mg/dL High Triglyceride: 200-499 mg/dL Very High Triglyceride: greater than or equal to 5OO mg/dL Cholesterol 180 <200 mg/dL Desirable Cholesterol: less than 200 mg/dL Borderline High Cholesterol: 200-239 mg/dL High Cholesterol: greater than 239 mg/dL LDL Calculated 103 H <100 mg/dL Desirable LDL: less than 100 mg/dL Near Optimal/Above Optimal LDL: 110-129 mg/dL Borderline High LDL: 130-159 mg/dL High LDL: 160-189 mg/dL Very High LDL: greater than or equal to 190 mg/dL HDL 63 >40 mg/dL Desirable HDL: greater than 40 mg/dL Note: This HDL assay may give artificially low results in patients with liver disease. Coding Level of Care Code Est Pt Level 4 (45906) Complex EM visit Add On G2211 Diagnoses Impaired fasting glucose R73.01 Dyslipidemia E78.5 Need for pneumococcal 20-valent conjugate vaccination Z23 Additional Codes KWAKU-7 Assessment Billing - KWAKU-7 Assessment Tool: KWAKU-7 Assessment 55044 ([id number]) Assessment & Plan Assessment & Plan (1) Impaired fasting glucose: Code(s): R73.01 - Impaired fasting glucose Category: Medical Plan: Your previous fasting blood sugars were elevated above 100 mg/dL. Impaired glucose metabolism increases the risk for developing diabetes mellitus type 2, as well as heart attack and stroke later on. Lifestyle changes that promotes weight loss, healthy eating habits, and regular exercise are important, and can prevent the progression to diabetes (2) Dyslipidemia: Code(s): E78.5 - Hyperlipidemia, unspecified Category: Medical Plan: Reviewed recent fasting lipid profile with patient with levels within normal limits . Continue atorvastatin 10 mg daily , in addition to adherence to low-cholesterol diet and regular exercise, at least 30 minutes 3 to 4 times a week. Advised patient to make healthy food choices, eat more fruits, vegetables, whole grains, wild caught fish and low-fat dairy. Limit amount of meat and fried or fatty food products, as well as processed foods and fast foods. (3) Need for pneumococcal 20-valent conjugate vaccination: Code(s): Z23 - Encounter for immunization Plan: Prevnar 20 given today Orders: Orders Pneumococcal 20 Immunization 08/07/24 Z23 - Encounter for immunization
== END 2024-08-07 12:49 | disposition home or self-care (01) ==
PROVIDERS: PCP Internal Medicine; Visit Provider Internal Medicine
DX: R73.01 Impaired fasting glucose (principal); E78.5 Hyperlipidemia, unspecified; Z23 Encounter for immunization

== ENCOUNTER → 2024-08-07 11:46 | Outpatient (BNVA) | payer OTHER, SELFPAY | PROVIDERS: PCP Internal Medicine; Visit Provider Internal Medicine | DX: R73.01 Impaired fasting glucose (principal); E78.5 Hyperlipidemia, unspecified; Z79.899 Other long term (current) drug therapy; Z23 Encounter for immunization | CPT/HCPCS: 90471; 90677; 96127 ==

== ENCOUNTER 2024-08-12 15:49 | Outpatient (AMB) | payer OTHER, SELFPAY ==
--- NOTE | 2024-08-12 15:54 | MHC.OFFVIS ---
Vital Signs 08/12/24 15:58 Height 5 ft 2.11 in Weight 155 lb 10.342 oz BMI 28.4 BP 138/84 Blood Pressure Location Rt brachial Position Sitting Pulse 76 Pulse Source Pulse Oximeter Intake Visit Reasons: f/u post-surgical hypothyroidism/osteoporosis Intake Note: Patient present today for Hypothyroidism/Osteoporosis follow up visit. 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: No Accompanied by: Self / Same As Patient Allergies trees Allergy (Mild, Uncoded 08/12/24 15:59) watery eyes, scratchy throat chocholate Allergy (Unknown, Uncoded 08/12/24 15:59) rash Medication List - Last Reconciled 08/12/24 by Anurag Pacheco MD albuterol sulfate 2.5 mg (3 mL) inhalation Q6H PRN atorvastatin 10 mg PO DAILY calcium 750 mg cholecalciferol (vitamin D3) 25 mcg PO DAILY fluticasone propion-salmeterol 250-50 mcg/dose (Advair Diskus) 1 inh inhalation BID levothyroxine 25 mcg PO DAILY 90 days magnesium citrate 400 mg PO DAILY magnesium oxide 400 mg PO DAILY montelukast 10 mg PO QAM HPI Comments Details: 63 YO Female with PMHx Celiac Disease and COPD is seen in F/U for Osteoporosis due to hyperparathyroidism and a new diagnosis of micropapillary thyroid carcinoma. The patient last saw Dr. Hodges on 02/27/2023 1) Osteoporosis and hyperparathyroidism. First diagnosed in 2019. She has never been treated. After her initial visit with me we checked a full biochemical evaluation for secondary causes of Osteoporosis. This revealed evidence of primary hyperparathyroidism with labs 05/05/2021 Calcium 10.2, Albumin 4.4, PTH 66 and Vitamin D 45.5. Labs were repeated 10/11/2021 with Calcium 9.8, Albumin 4.3, PTH 76 and Vitamin D 46.2. 24 hour urine calcium was WNL. She had an US of the neck which revealed what appears to be a 1.3 cm right sided parathyroid adenoma adjacent to the right lower pole of the thyroid. She also has a 1.1 cm hypoechoic left lower pole thyroid nodule which I suspect may represent an intrathyroidal parathyroid. She was referred to Dr. Sandoval and underwent a subtotal parathyroidectomy with resection of of 3 parathyroid glands (left inferior, left superior and right inferior) all with pathology confirming hypercellular parathyroid tissue. Biopsy was taken of the right superior parathyroid, with cytology revealing normocellular parathyroid tissue. Has 0 servings of dietary calcium per day. Takes Calcium citrate 600 mg PO daily. Takes 1000 IU of Vitamin D daily. Denies using PPI, anticoagulant, antiepileptic or glucocorticoid medication. Has used prednisone tapers in the past, but no [facility] glucocorticoid therapy. Has celiac disease and follows a strict gluten free diet. Does weight bearing exercise in the form of walking 5000 steps 5 days per week. Fracture history: Fractured her collar bone. This was a fragility fracture from a fall from standing. 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 Menses was always regular. . She did breastfeed 3-4 hours in total. Menopause was in her 50's, but she does not recall. Did have kidney stones in the past. Denies family history of Osteoporosis or hip fracture. UTD on dental cleanings and sees dentist every 6 months. No planned upcoming dental work or extractions. 2) NTMNG: She had an US of the thyroid completed 10/05/2021 which revealed a multinodular thyroid. She then underwent FNA biopsy of her RMP 1.1 cm thyroid nodule with cytology consistent with a follicular lesion of undetermined significance (bethesda category III). 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 She was referred to Dr. Turner and underwent a L thyroid lobectomy. Surgical pathology revealed incidental finding of 1.5 mm of classic PTC. This was unifocal, with no angioinvasion, no lymphatic invasion, no perineural invasion and no extrathyroidal extension. Margins were uninvolved. 0/4 lymph nodes were positive for metastatic disease. She is seen today in F/U. DEXA: 06/01/2021 FINDINGS: AP SPINE L1-L4: Current: BMD 0.881 g/cm2, Z-score -1.3, T-score -2.5, osteoporosis, 0.6% increase from previous, 8.5% increase from baseline (<5% change is not significant). Prior: BMD 0.876 g/cm2. Baseline: BMD 0.812 g/cm2. LEFT FEMUR, NECK: Current: BMD 0.761 g/cm2, Z-score -0.8, T-score -2.0, osteopenia. Prior: BMD 0.759 g/cm2. Baseline: BMD 0.776 g/cm2. LEFT FEMUR, TOTAL: Current: BMD 0.757 g/cm2, Z-score -1.1, T-score -2.0, osteopenia, 2.9% increase from previous, 3.8% increase from baseline (<5% change is not significant). Prior: BMD 0.736 g/cm2. Baseline: BMD 0.729 g/cm2. Distal Forearm DEXA 09/30/2021: FINDINGS: LEFT FOREARM RADIUS 33%: BMD 0.635 g/cm2, Z-score -1.7, T-score -2.8, osteoporosis. Prior:? Not previously measured. Thyroid US: 10/05/21 Right Thyroid Lobe: 5.2 x 2.1 x 1.7 cm, volume 9.7 mL. Parenchyma: The gland echotexture is homogeneous. Thyroid vascularity is normal. Left Thyroid Lobe: 4.1 x 1.3 x 1.6 cm, volume 4.5 mL. Parenchyma: The gland echotexture is homogeneous. Thyroid vascularity is normal. Isthmus: 0.2 cm in maximum AP dimension. Estimated total number of nodules greater than or equal to 1 cm: 1. Supervisor Money Room nodules are described as follows: 1. Location: Medial mid left. ?? ? Size: 0.5 x 0.2 x 0.2 cm, volume 0.02 mL. ?? ? Nodule characteristics: ?? ? Composition: Spongiform (0). ?? ? Echogenicity: Anechoic (0). ?? ? Shape: Not taller than wide (0). ?? ? Margins: Smooth (0). ?? ? Echogenic Foci: None (0). ?? ? ACR TI-RADS total points: 0 ?? ? ACR TI-RADS category: 1 2. Location: Inferior left. ?? ? Size: 1.1 x 0.6 x 1.0 cm, volume 0.32 mL. ?? ? Nodule characteristics: ?? ? Composition: Solid (2). ?? ? Echogenicity: Very hypoechoic (3). ?? ? Shape: Not taller than wide (0). ?? ? Margins: Smooth (0). ?? ? Echogenic Foci: None (0). ?? ? ACR TI-RADS total points: 5 ?? ? ACR TI-RADS category: 4 NODES: No significant adenopathy noted. Lung the inferior margin of the right and left lobe, a small hypoechoic areas, on the right at 13 x 8 x 6 mm and on the left 6 x 5 x 9 mm. These may reflect a parathyroid glands. Labs: Laboratory Tests 02/20/23 02/20/23 15:20 15:20 Creatinine 0.84 Estimated GFR > 60 25-OH Vitamin D Total 55.9 TSH 4.69 H PTH Intact 24 Calcium (PTH Intact) 9.4 She is currently on levothyroxine 25 micrograms. Status post left lobectomy and parathyroidectomy [facility] Medical History (Updated 08/07/24 @ 12:36 by Anahi Moon MD) Nocturnal leg cramps History of cholecystitis History of adenomatous polyp of colon FH: cholecystectomy Postoperative hypothyroidism Thyroid cancer Multinodular thyroid Hyperparathyroidism Allergic rhinitis Deviated nasal septum Vitamin D deficiency Osteoporosis Tubular adenoma of colon Celiac disease Emphysema lung Hiatal hernia Impaired fasting glucose Dyslipidemia Surgical History Hx of cholecystectomy History of laparoscopic cholecystectomy History of lobectomy of thyroid Hx of parathyroidectomy Hx of biopsy History of tonsillectomy and adenoidectomy History of Family History Father Essential hypertension CVA (cerebral vascular accident) Cardiovascular disease Mother Essential hypertension Skin cancer Heart disease Brother FHx: early [place] Social History Housing: House Alcohol intake: former Patient Tobacco Use Status: Former Tobacco user e-Cigarette/Vaping Use: Never Used Current occupational status: employed Cognitive needs: No Hearing needs: No Vision needs: Yes Physical Exam Vital Signs: Last Vital Signs Pulse 76 08/12/24 15:58 BP 138/84 08/12/24 15:58 BMI result Body Mass Index 28.4 Assessment & Plan Assessment & Plan (1) Osteoporosis: Code(s): M81.0 - Age-related osteoporosis without current pathological fracture Category: Medical Qualifiers: Osteoporosis type: age-related Presence of current pathological fracture: without current pathological fracture Qualified Code(s): M81.0 - Age-related osteoporosis without current pathological fracture Plan: History of primary hyperparathyroidism status post parathyroidectomy. Other secondary causes of osteoporosis rule out. Patient currently on calcium and vitamin-D supplementation. Recent DEXA showed persistence of osteoporosis Will talk to patient about starting pharmacologic therapy mainly oral bisphosphonate (2) Postoperative hypothyroidism: Code(s): E89.0 - Postprocedural hypothyroidism Category: Medical Plan: This 63-year-old white female status post right lobectomy and parathyroidectomy with micro papillary cancer present. Left lobe does not contain the presence of any nodules. She is currently on 25 mcg levothyroxine appears to be clinically and biochemically euthyroid. Plan is to continue the current therapy. In terms of hypothyroidism, patient can follow up with the primary care provider and returned back to endocrinology as needed Orders: Orders Collagen Crosslinks NTX 5 Months M81.0 - Age-related osteoporosis without current pathological fracture Medications: New alendronate 70 mg PO QWEEK 5 tabs 5RF Coding Level of Care Code Est Pt Level 3 (63676) Diagnoses Age-related osteoporosis without current pathological fracture M81.0 Osteoporosis type: age-related Presence of current pathological fracture: without current pathological fracture Postoperative hypothyroidism E89.0
[2024-08-12 15:58] VITALS: BP 138/84; PULSE 76; BMI 28.4
== END 2024-08-12 16:24 | disposition home or self-care (01) ==
LOC: HO.ENCR 15:50
PROVIDERS: PCP Internal Medicine; Visit Provider Internal Medicine Endocrinology, Diabetes & Metabolism
DX: M81.0 Age-related osteoporosis without current pathological fracture (principal); E89.0 Postprocedural hypothyroidism
CPT/HCPCS: 99213

== ENCOUNTER → 2024-08-12 15:49 | Outpatient (BNVA) | payer OTHER, SELFPAY | PROVIDERS: PCP Internal Medicine; Visit Provider Internal Medicine Endocrinology, Diabetes & Metabolism ==

== ENCOUNTER 2024-08-19 15:10 | Outpatient (AMB) | payer OTHER, SELFPAY ==
[2024-08-19 15:22] VITALS: BP 132/80; PULSE 78; O2SAT 98; BMI 28.3
--- NOTE | 2024-08-19 15:22 | AM.OFFWIN_ITS ---
Intake Vital Signs 08/19/24 15:22 Height 5 ft 2 in Weight 155 lb BMI 28.3 BP 132/80 Blood Pressure Location Rt brachial Position Sitting Pulse 78 Pulse Source Pulse Oximeter Pulse Oximetry (%) 98 Intake Visit Reasons: EP Tick under RT arm Intake Note: pt is here for tick under right arm, unable to remove tic herself Patient Tobacco Use Status: Former Tobacco user Allergies trees Allergy (Mild, Uncoded 08/19/24 15:23) watery eyes, scratchy throat chocholate Allergy (Unknown, Uncoded 08/19/24 15:23) rash Do you need a note to return to daycare/school/sports/work: No HPI HPI Comments History of Present Illness Details Patient is a 64-year-old female complaining of what she thinks is a tick underneath her right arm pit. She states it has been there for about 3 days and it is very tender and painful. [place] and she very often comes across tics in his usually able to remove them herself but she states that today, she is unable to remove it. [facility] Medical History (Updated 08/19/24 @ 16:13 by Kira Michael PA-C) Nocturnal leg cramps History of cholecystitis History of adenomatous polyp of colon FH: cholecystectomy Postoperative hypothyroidism Thyroid cancer Multinodular thyroid Hyperparathyroidism Allergic rhinitis Deviated nasal septum Vitamin D deficiency Osteoporosis Tubular adenoma of colon Celiac disease Emphysema lung Hiatal hernia Impaired fasting glucose Dyslipidemia Surgical History Hx of cholecystectomy History of laparoscopic cholecystectomy History of lobectomy of thyroid Hx of parathyroidectomy Hx of biopsy History of tonsillectomy and adenoidectomy History of Family History Father Essential hypertension CVA (cerebral vascular accident) Cardiovascular disease Mother Essential hypertension Skin cancer Heart disease Brother FHx: early [place] Social History Housing: House Alcohol intake: former Patient Tobacco Use Status: Former Tobacco user e-Cigarette/Vaping Use: Never Used Current occupational status: employed Cognitive needs: No Hearing needs: No Vision needs: Yes Review of Systems Const All systems reviewed & are unremarkable except as noted in HPI and below Physical Exam Vital Signs: Last Vital Signs Pulse 78 08/19/24 15:22 BP 132/80 08/19/24 15:22 Pulse Ox 98 08/19/24 15:22 BMI result Body Mass Index 28.3 Const General: cooperative, healthy appearing, comfortable, no acute distress and well developed Orientation/consciousness: patient oriented x3 Limitations: no limitations HEENT Head: Yes normal to inspection Neck Neck: Yes normal visual inspection and Yes supple Neuro General: patient oriented x3 Extrem Other: Right axilla has a 0.75 cm erythematous, round, indurated area. No ecchymosis, no warmth. No laceration or other puncture in the skin, no evidence of a tick. Assessment & Plan Assessment & Plan (1) Abscess of axilla, right: Code(s): L02.411 - Cutaneous abscess of right axilla Plan: Sent antibiotics to pharmacy, recommended following up with PCP if no improvement in her symptoms in 2 weeks Plan See above Medications: New doxycycline hyclate 100 mg PO BID 14 tabs 0RF Coding Level of Care Code Est Pt Level 3 (52837) Diagnoses Abscess of axilla, right L02.411
== END 2024-08-19 16:35 | disposition home or self-care (01) ==
PROVIDERS: PCP Internal Medicine; Visit Provider Physician Assistant
DX: L02.411 Cutaneous abscess of right axilla (principal)

== ENCOUNTER → 2024-08-19 15:10 | Outpatient (BNVA) | payer OTHER, SELFPAY | PROVIDERS: PCP Internal Medicine; Visit Provider Physician Assistant ==

== ENCOUNTER 2024-08-29 07:46 | Outpatient (AMB) | payer OTHER, SELFPAY ==
[2024-08-29 08:00] VITALS: BP 136/80; PULSE 76; O2SAT 97; BMI 29.4
--- NOTE | 2024-08-29 08:00 | MHC.PC.OV ---
Vital Signs 08/29/24 08:00 Height 5 ft 2 in Weight 161 lb BMI 29.4 BP 136/80 Blood Pressure Location Rt brachial Position Sitting Pulse 76 Pulse Source Pulse Oximeter Pulse Oximetry (%) 97 Oxygen Delivery Method Room Air Intake Visit Reasons: f/u walkin no improvement Rt arm pit abscess Allergies trees Allergy (Mild, Uncoded 08/29/24 08:20) watery eyes, scratchy throat chocholate Allergy (Unknown, Uncoded 08/29/24 08:20) rash Medication List - Last Reconciled 08/29/24 by Anahi Moon MD albuterol sulfate 2.5 mg (3 mL) inhalation Q6H PRN alendronate 70 mg PO QWEEK atorvastatin 10 mg PO DAILY calcium 750 mg cholecalciferol (vitamin D3) 25 mcg PO DAILY fluticasone propion-salmeterol 250-50 mcg/dose (Advair Diskus) 1 inh inhalation BID levothyroxine 25 mcg PO DAILY 90 days magnesium citrate 400 mg PO DAILY montelukast 10 mg PO QAM Tobacco use date assessed: 08/29/24 Dental Screening Dental Screen Date: 08/07/24 HPI f/u walkin no improvement Rt arm pit abscess HPI Details 64-year-old Lady here today for follow-up after recent walk-in visit, where she was treated for a right axillary abscess with doxycycline. Patient states that she has completed taking her antibiotics but still has a residual mass left behind which is slightly tender to palpation. PFSH Medical History Nocturnal leg cramps History of cholecystitis History of adenomatous polyp of colon FH: cholecystectomy Postoperative hypothyroidism Thyroid cancer Multinodular thyroid Hyperparathyroidism Allergic rhinitis Deviated nasal septum Vitamin D deficiency Osteoporosis Tubular adenoma of colon Celiac disease Emphysema lung Hiatal hernia Impaired fasting glucose Dyslipidemia Surgical History Hx of cholecystectomy History of laparoscopic cholecystectomy History of lobectomy of thyroid Hx of parathyroidectomy Hx of biopsy History of tonsillectomy and adenoidectomy History of Family History Father Essential hypertension CVA (cerebral vascular accident) Cardiovascular disease Mother Essential hypertension Skin cancer Heart disease Brother FHx: early [place] Social History Housing: House Alcohol intake: former Patient Tobacco Use Status: Former Tobacco user e-Cigarette/Vaping Use: Never Used Current occupational status: employed Cognitive needs: No Hearing needs: No Vision needs: Yes Questionnaire Thrive Questionnaire Date Thrive assessed: 08/07/24 I am a: Patient What is your living situation today?: I have a steady place to live Within the past 12 months, did the food you bought not last and you didn't have the money to get more?: I choose not to answer this question Within the past 12 months, did you worry whether your food would run out before you got money to buy more?: I choose not to answer this question Do you have trouble paying for medicines?: I choose not to answer this question Do you have trouble getting transportation to medical appointments?: I choose not to answer this question Do you have trouble paying your heating and electricity bill?: I choose not to answer this question Do you have trouble taking care of your child, family member or friend?: I choose not to answer this question Do you have trouble with day-to-day activities such as bathing, preparing meals, shopping, managing finances, etc.?: I choose not to answer this question Are you currently unemployed and looking for a job?: I choose not to answer this question Are you interested in more education?: I choose not to answer this question Please select the resources that you would like help with: None Currently or been in a relationship where the following occur: No concerns reported THRIVE Score: 0 KWAKU-7 AMB Questionnaire KWAKU-7 Date KWAKU - 7 assessed: 08/07/24 Source: Developed by Drs. Anurag Whitaker, Marine Ibarra, Michael Root and colleagues, with an educational donay from [employer]. Review of Systems Const All systems reviewed & are unremarkable except as noted in HPI and below Physical exam (Primary Care) Vital Signs: Last Vital Signs Pulse 76 08/29/24 08:00 BP 136/80 08/29/24 08:00 Pulse Ox 97 08/29/24 08:00 Oxygen Delivery Method Room Air 08/29/24 08:00 BMI result Body Mass Index 29.4 Tobacco/Smoking Status: Tobacco use Status Tobacco use date assessed 08/29/24 08/29/24 08:10 Patient Tobacco Use Status Former Tobacco user 08/29/24 08:01 e-Cigarette/Vaping Use Never Used 08/29/24 08:01 Thrive Assessment: Date of Thrive Assessment Date Thrive assessed 08/07/24 08/29/24 08:01 Currently or been in a relationship where the following occur: No concerns reported Const Other: Alert oriented x3, no acute distress noted ambulatory normal gait Neck Neck: Yes full ROM, Yes no lymphadenopathy and Yes supple Resp Auscultation: clear to auscultation bilaterally Skin Other: Slightly tender nodular lesion on right axillary area, with no overlying erythema or increased warmth no drainage Coding Level of Care Code Est Pt Level 3 (03476) Diagnoses Abscess of axilla, right L02.411 Assessment & Plan Assessment & Plan (1) Abscess of axilla, right: Code(s): L02.411 - Cutaneous abscess of right axilla Category: Medical Plan: Will continue on 7 more days of doxycycline at 100 mg capsule twice a day taken with food,, apply warm compresses to affected area, return to clinic if no complete resolution of symptoms Medications: New doxycycline hyclate 100 mg PO BID 7 days 14 caps 0RF
== END 2024-08-29 09:10 | disposition home or self-care (01) ==
PROVIDERS: PCP Internal Medicine; Visit Provider Internal Medicine
DX: L02.411 Cutaneous abscess of right axilla (principal)

== ENCOUNTER 2025-01-15 15:33 | Outpatient (REF) | payer BC, SELFPAY | END 2025-01-15 15:34 | disposition home or self-care (01) | LOC: HO.LAB 15:33 | PROVIDERS: PCP Internal Medicine; Visit Provider Internal Medicine Endocrinology, Diabetes & Metabolism | DX: Z13.89 Encounter for screening for other disorder (principal) ==

== ENCOUNTER 2025-01-17 15:42 | Outpatient (REF) | payer BC, SELFPAY ==
[2025-01-29 14:37] LABS: N-Telopeptide 28 (see note); NTXCreaRU 71 mg/dL (20-275)
== END 2025-01-17 15:43 | disposition home or self-care (01) ==
LOC: HO.LNP 15:42
PROVIDERS: Visit Provider Internal Medicine Endocrinology, Diabetes & Metabolism
DX: M81.0 Age-related osteoporosis without current pathological fracture (principal)
CPT/HCPCS: 82523

== ENCOUNTER 2025-02-10 15:50 | Outpatient (AMB) | payer OTHER, SELFPAY ==
--- NOTE | 2025-02-10 15:52 | MHC.OFFVIS ---
Vital Signs 02/10/25 15:55 Height 5 ft 1.26 in Weight 163 lb 9.328 oz BMI 30.6 BP 128/86 Blood Pressure Location Rt brachial Position Sitting Pulse 76 Pulse Source Pulse Oximeter Pulse Oximetry (%) 98 Oxygen Delivery Method Room Air Intake Visit Reasons: f/u osteoporosis Intake Note: Patient present today for Osteoporosis follow up. Credit Authorizer Required: No Accompanied by: Self / Same As Patient Allergies trees Allergy (Mild, Uncoded 02/10/25 15:57) watery eyes, scratchy throat chocholate Allergy (Unknown, Uncoded 02/10/25 15:57) rash Medication List - Last Reconciled 02/10/25 by Anurag Pacheco MD albuterol sulfate 2.5 mg (3 mL) inhalation Q6H PRN alendronate 70 mg PO QWEEK atorvastatin 10 mg PO DAILY calcium 750 mg cholecalciferol (vitamin D3) 25 mcg PO DAILY fluticasone propion-salmeterol 250-50 mcg/dose (Advair Diskus) 1 inh inhalation BID levothyroxine 25 mcg PO DAILY 90 days magnesium citrate 400 mg PO DAILY montelukast 10 mg PO QAM HPI Comments Details: 63 YO Female with PMHx Celiac Disease and COPD is seen in F/U for Osteoporosis due to hyperparathyroidism T 1) Osteoporosis and hyperparathyroidism. First diagnosed in 2019. She has never been treated. After her initial visit with me we checked a full biochemical evaluation for secondary causes of Osteoporosis. This revealed evidence of primary hyperparathyroidism with labs 05/05/2021 Calcium 10.2, Albumin 4.4, PTH 66 and Vitamin D 45.5. Labs were repeated 10/11/2021 with Calcium 9.8, Albumin 4.3, PTH 76 and Vitamin D 46.2. 24 hour urine calcium was WNL. She had an US of the neck which revealed what appears to be a 1.3 cm right sided parathyroid adenoma adjacent to the right lower pole of the thyroid. She also has a 1.1 cm hypoechoic left lower pole thyroid nodule which I suspect may represent an intrathyroidal parathyroid. She was referred to Dr. Sandoval and underwent a subtotal parathyroidectomy with resection of of 3 parathyroid glands (left inferior, left superior and right inferior) all with pathology confirming hypercellular parathyroid tissue. Biopsy was taken of the right superior parathyroid, with cytology revealing normocellular parathyroid tissue. Has 0 servings of dietary calcium per day. Takes Calcium citrate 600 mg PO daily. Takes 1000 IU of Vitamin D daily. Denies using PPI, anticoagulant, antiepileptic or glucocorticoid medication. Has used prednisone tapers in the past, but no longterm glucocorticoid therapy. Has celiac disease and follows a strict gluten free diet. Does weight bearing exercise in the form of walking 5000 steps 5 days per week. Fracture history: Fractured her collar bone. This was a fragility fracture from a fall from standing. 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 Menses was always regular. . She did breastfeed 3-4 hours in total. Menopause was in her 50's, but she does not recall. Did have kidney stones in the past. Denies family history of Osteoporosis or hip fracture. UTD on dental cleanings and sees dentist every 6 months. No planned upcoming dental work or extractions. 2) NTMNG: She had an US of the thyroid completed 10/05/2021 which revealed a multinodular thyroid. She then underwent FNA biopsy of her RMP 1.1 cm thyroid nodule with cytology consistent with a follicular lesion of undetermined significance (bethesda category III). 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 She was referred to Dr. Turner and underwent a L thyroid lobectomy. Surgical pathology revealed incidental finding of 1.5 mm of classic PTC. This was unifocal, with no angioinvasion, no lymphatic invasion, no perineural invasion and no extrathyroidal extension. Margins were uninvolved. 0/4 lymph nodes were positive for metastatic disease. She is seen today in F/U. DEXA: 06/01/2021 FINDINGS: AP SPINE L1-L4: Current: BMD 0.881 g/cm2, Z-score -1.3, T-score -2.5, osteoporosis, 0.6% increase from previous, 8.5% increase from baseline (<5% change is not significant). Prior: BMD 0.876 g/cm2. Baseline: BMD 0.812 g/cm2. LEFT FEMUR, NECK: Current: BMD 0.761 g/cm2, Z-score -0.8, T-score -2.0, osteopenia. Prior: BMD 0.759 g/cm2. Baseline: BMD 0.776 g/cm2. LEFT FEMUR, TOTAL: Current: BMD 0.757 g/cm2, Z-score -1.1, T-score -2.0, osteopenia, 2.9% increase from previous, 3.8% increase from baseline (<5% change is not significant). Prior: BMD 0.736 g/cm2. Baseline: BMD 0.729 g/cm2. Distal Forearm DEXA 09/30/2021: FINDINGS: LEFT FOREARM RADIUS 33%: BMD 0.635 g/cm2, Z-score -1.7, T-score -2.8, osteoporosis. Prior:? Not previously measured. Thyroid US: 10/05/21 Right Thyroid Lobe: 5.2 x 2.1 x 1.7 cm, volume 9.7 mL. Parenchyma: The gland echotexture is homogeneous. Thyroid vascularity is normal. Left Thyroid Lobe: 4.1 x 1.3 x 1.6 cm, volume 4.5 mL. Parenchyma: The gland echotexture is homogeneous. Thyroid vascularity is normal. Isthmus: 0.2 cm in maximum AP dimension. Estimated total number of nodules greater than or equal to 1 cm: 1. 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 Location: Medial mid left. ?? ? Size: 0.5 x 0.2 x 0.2 cm, volume 0.02 mL. ?? ? Nodule characteristics: ?? ? Composition: Spongiform (0). ?? ? Echogenicity: Anechoic (0). ?? ? Shape: Not taller than wide (0). ?? ? Margins: Smooth (0). ?? ? Echogenic Foci: None (0). ?? ? ACR TI-RADS total points: 0 ?? ? ACR TI-RADS category: 1 2. Location: Inferior left. ?? ? Size: 1.1 x 0.6 x 1.0 cm, volume 0.32 mL. ?? ? Nodule characteristics: ?? ? Composition: Solid (2). ?? ? Echogenicity: Very hypoechoic (3). ?? ? Shape: Not taller than wide (0). ?? ? Margins: Smooth (0). ?? ? Echogenic Foci: None (0). ?? ? ACR TI-RADS total points: 5 ?? ? ACR TI-RADS category: 4 NODES: No significant adenopathy noted. Lung the inferior margin of the right and left lobe, a small hypoechoic areas, on the right at 13 x 8 x 6 mm and on the left 6 x 5 x 9 mm. These may reflect a parathyroid glands. Labs: Laboratory Tests 02/20/23 02/20/23 15:20 15:20 Creatinine 0.84 Estimated GFR > 60 25-OH Vitamin D Total 55.9 TSH 4.69 H PTH Intact 24 Calcium (PTH Intact) 9.4 She is currently on alendronate 70 mg Q weekly. The patient is a 64-year-old female presenting with symptoms of gastroesophageal reflux disease (GERD) and significant musculoskeletal issues that commenced post-cholecystectomy. She has been experiencing persistent symptoms of regurgitation, burping, and flatulence, all worsening post-initiation of alendronate for osteoporosis. The patient reports aggravated back pain, initially present before the medication but progressively worsening to the point of affecting daily activities. Urinary symptoms, including nocturia and urine urgency, have also been prominent, with noted incontinence episodes particularly distressing the patient. The patient has consistently experienced these symptoms since starting her alendronate treatment, raising concerns about the medication's contribution to her esophageal and musculoskeletal symptoms. She links a decline in her overall condition to post-surgical changes following the cholecystectomy, complicating the assessment of the medication's direct impact. [facility] Medical History Nocturnal leg cramps History of cholecystitis History of adenomatous polyp of colon FH: cholecystectomy Postoperative hypothyroidism Thyroid cancer Multinodular thyroid Hyperparathyroidism Allergic rhinitis Deviated nasal septum Vitamin D deficiency Osteoporosis Tubular adenoma of colon Celiac disease Emphysema lung Hiatal hernia Impaired fasting glucose Dyslipidemia Surgical History Hx of cholecystectomy History of laparoscopic cholecystectomy History of lobectomy of thyroid Hx of parathyroidectomy Hx of biopsy History of tonsillectomy and adenoidectomy History of Family History Father Essential hypertension CVA (cerebral vascular accident) Cardiovascular disease Mother Essential hypertension Skin cancer Heart disease Brother FHx: early [place] Social History Housing: House Alcohol intake: former Patient Tobacco Use Status: Former Tobacco user e-Cigarette/Vaping Use: Never Used Current occupational status: employed Cognitive needs: No Hearing needs: No Vision needs: Yes Physical Exam Vital Signs: BMI result Body Mass Index 30.6 Const Other: Musculoskeletal- Reported significant tenderness noted on palpation from lower back downwards, no specific areas of localized swelling or deformity observed by palpation. Assessment & Plan Assessment & Plan (1) Osteoporosis: Code(s): M81.0 - Age-related osteoporosis without current pathological fracture Category: Medical Qualifiers: Osteoporosis type: age-related Presence of current pathological fracture: without current pathological fracture Qualified Code(s): M81.0 - Age-related osteoporosis without current pathological fracture Plan: History of primary hyperparathyroidism status post parathyroidectomy. Other secondary causes of osteoporosis rule out. Patient currently on calcium and vitamin-D supplementation as well as alendronate started 03/2024. Urine NTX is suppressed. However, patient may be experiencing gastrointestinal and/or musculoskeletal side effects of alendronate 1. Gastroesophageal reflux disease (GERD) A trial period of holding alendronate is advised to determine if reflux symptoms resolve. Alternative treatment options will be considered if symptoms improve. 2. Back pain Discontinuing alendronate may offer insights into pain origins. Continued pain may necessitate further orthopedic evaluation. I discussed with the patient the potential relationships between her symptoms and alendronate use, as well as her post-operative state following cholecystectomy. We explored options including withholding the medication as a diagnostic step, and possibly transitioning to alternative treatments such as intravenous bisphosphonates or denosumab if improvement was observed. The patient was educated on the potential side effects of these alternatives. A follow-up appointment in approximately two months was recommended to assess symptom progression without the medication and to adjust the treatment plan accordingly. - Discontinue alendronate for two weeks and monitor symptoms. - Report any improvement or worsening of symptoms to the office. If symptoms are alleviated, can reintroduce the alendronate to see if they worsen are correlated with use of alendronate - Retain safe practices to avoid falls. - Continue calcium and vitamin D supplementation. - Maintain awareness of symptoms, and seek care if there is no improvement or if symptoms worsen. - Review alternatives and decisions at the follow-up visit. The patient had an opportunity to ask questions regarding treatment plan. The patient expressed understanding and agreement with the above treatment plan. . Patient was informed and verbally consented to the use of an ambient scribe for clinic note documentation during this visit. Coding Level of Care Code Est Pt Level 3 (40192) Diagnoses Age-related osteoporosis without current pathological fracture M81.0 Osteoporosis type: age-related Presence of current pathological fracture: without current pathological fracture
[2025-02-10 15:55] VITALS: BP 128/86; PULSE 76; O2SAT 98; BMI 30.6
== END 2025-02-10 16:15 | disposition home or self-care (01) ==
LOC: HO.ENCR 15:50
PROVIDERS: PCP Internal Medicine; Visit Provider Internal Medicine Endocrinology, Diabetes & Metabolism
DX: M81.0 Age-related osteoporosis without current pathological fracture (principal)
CPT/HCPCS: 99213

== ENCOUNTER → 2025-02-10 15:50 | Outpatient (BNVA) | payer BC, SELFPAY | PROVIDERS: PCP Internal Medicine; Visit Provider Internal Medicine Endocrinology, Diabetes & Metabolism ==

== ENCOUNTER 2025-02-17 14:27 | Outpatient (AMB) | payer BC, SELFPAY ==
--- NOTE | 2025-02-17 15:41 | AM.OFFWIN_ITS ---
Intake Vital Signs 3 02/17/25 15:44 Weight 164 lb BP 130/90 H Blood Pressure Location Rt brachial Position Sitting Pulse 77 Pulse Source Pulse Oximeter Temp 97.8 F Temp Source Oral Pulse Oximetry (%) 97 Oxygen Delivery Method Room Air Intake Visit Reasons: EP-thick bite rt side lower back Intake Note: Patient here for tick bite on lower right side of back. Patient Tobacco Use Status: Former Tobacco user Allergies trees Allergy (Mild, Uncoded 02/17/25 15:43) watery eyes, scratchy throat chocholate Allergy (Unknown, Uncoded 02/17/25 15:43) rash Do you need a note to return to daycare/school/sports/work: No HPI HPI Comments 2 History of Present Illness0 Details 64 y/o Female patient who presents to [facility] walk in clinic with c/o Tick Bite right lower posterior Back. She was in [place] visiting her daughter; went for a [facility] yesterday when she noticed a Tick Bite. Her daughter was able to remove the Tick right way. Pt c/o small red Lesion that TTP. Denies fevers, chills, nausea or vomiting. She does endorse some mild joint pains. [facility] Medical History (Updated 02/17/25 @ 18:26 by Rox Durbin NP) Tick bite of back Nocturnal leg cramps History of cholecystitis History of adenomatous polyp of colon FH: cholecystectomy Postoperative hypothyroidism Thyroid cancer Multinodular thyroid Hyperparathyroidism Allergic rhinitis Deviated nasal septum Vitamin D deficiency Osteoporosis Tubular adenoma of colon Celiac disease Emphysema lung Hiatal hernia Impaired fasting glucose Dyslipidemia Surgical History Hx of cholecystectomy History of laparoscopic cholecystectomy History of lobectomy of thyroid Hx of parathyroidectomy Hx of biopsy History of tonsillectomy and adenoidectomy History of Family History Father Essential hypertension CVA (cerebral vascular accident) Cardiovascular disease Mother Essential hypertension Skin cancer Heart disease Brother FHx: early [place] Social History Housing: House Alcohol intake: former Patient Tobacco Use Status: Former Tobacco user e-Cigarette/Vaping Use: Never Used Current occupational status: employed Cognitive needs: No Hearing needs: No Vision needs: Yes Review of Systems Const All systems reviewed & are unremarkable except as noted in HPI and below Physical Exam Vital Signs: Last Vital Signs Temp 97.8 F 02/17/25 15:44 Pulse 77 02/17/25 15:44 BP 130/90 H 02/17/25 15:44 Pulse Ox 97 02/17/25 15:44 Oxygen Delivery Method Room Air 02/17/25 15:44 Const General: no acute distress Orientation/consciousness: patient oriented x3 Resp Effort & Inspection: normal respiratory effort Auscultation: clear to auscultation bilaterally Cardio Heart sounds: S1 normal heart sound present and S2 normal heart sound present Skin Full body images: 2 1. Lesion Erythema Migrans ~ 0.5 inch Neuro General: patient oriented x3 Assessment & Plan Assessment & Plan (1) Tick bite of back: Code(s): S30.860A - Insect bite (nonvenomous) of lower back and pelvis, initial encounter; W57.XXXA - Bitten or stung by nonvenomous insect and other nonvenomous arthropods, initial encounter Qualifiers: Encounter type: initial encounter Qualified Code(s): S30.860A - Insect bite (nonvenomous) of lower back and pelvis, initial encounter; W57.XXXA - Bitten or stung by nonvenomous insect and other nonvenomous arthropods, initial encounter Plan: Ordered Doxy Medications: New 2 doxycycline hyclate 200 mg (2 x 100 mg) PO ONCE 2 caps 0RF S30.860A - Insect bite (nonvenomous) of lower back and pelvis, initial encounter, W57.XXXA - Bitten or stung by nonvenomous insect and other nonvenomous arthropods, initial encounter Coding Level of Care Code Est Pt Level 4 (49618) Diagnoses Tick bite of back, initial encounter S30.860A; W57.XXXA Encounter type: initial encounter Time Spent (min) 20
[2025-02-17 15:44] VITALS: BP 130/90; PULSE 77; TEMP 36.6; O2SAT 97
== END 2025-02-17 16:01 | disposition home or self-care (01) ==
PROVIDERS: PCP Internal Medicine; Visit Provider Nurse Practitioner Family
DX: S30.860A Insect bite (nonvenomous) of lower back and pelvis, initial encounter (principal); W57.XXXA Bitten or stung by nonvenomous insect and other nonvenomous arthropods, initial encounter

== ENCOUNTER → 2025-02-17 14:27 | Outpatient (BNVA) | payer BC, SELFPAY | PROVIDERS: PCP Internal Medicine; Visit Provider Nurse Practitioner Family ==

== ENCOUNTER 2025-05-13 15:44 | Outpatient (AMB) | payer BC, SELFPAY ==
--- NOTE | 2025-05-13 15:46 | A.OFFVIS_ITS ---
Vital Signs 05/13/25 15:47 Height 5 ft 1.26 in Weight 163 lb 2.273 oz BMI 30.6 BP 162/98 H Blood Pressure Location Rt brachial Position Sitting Pulse 84 Pulse Source Pulse Oximeter Pulse Oximetry (%) 95 Oxygen Delivery Method Room Air Intake Visit Reasons: f/u osteoporosis Intake Note: Patient present today for Osteoporosis follow up. Cloth Shader Required: No Accompanied by: Self / Same As Patient Allergies trees Allergy (Mild, Uncoded 05/13/25 15:50) watery eyes, scratchy throat chocholate Allergy (Unknown, Uncoded 05/13/25 15:50) rash Medication List - Last Reconciled 05/13/25 by Anurag Pacheco MD albuterol sulfate 2.5 mg (3 mL) inhalation Q6H PRN alendronate 70 mg PO QWEEK atorvastatin 10 mg PO DAILY calcium 750 mg cholecalciferol (vitamin D3) 25 mcg PO DAILY doxycycline hyclate 200 mg (2 x 100 mg) PO ONCE fluticasone propion-salmeterol 250-50 mcg/dose (Advair Diskus) 1 inh inhalation BID levothyroxine 25 mcg PO DAILY 90 days magnesium citrate 400 mg PO DAILY montelukast 10 mg PO QAM HPI Comments Details: 64 YO Female with PMHx Celiac Disease and COPD is seen in F/U for Osteoporosis due to hyperparathyroidism T 1) Osteoporosis and hyperparathyroidism. First diagnosed in 2019. She has never been treated. After her initial visit with me we checked a full biochemical evaluation for se condary causes of Osteoporosis. This revealed evidence of primary hyperparathyroidism with labs 05/05/2021 Calcium 10.2, Albumin 4.4, PTH 66 and Vitamin D 45.5. Labs were repeated 10/11/2021 with Calcium 9.8, Albumin 4.3, PTH 76 and Vitamin D 46.2. 24 hour urine calcium was WNL. She had an US of the neck which revealed what appears to be a 1.3 cm right sided parathyroid adenoma adjacent to the right lower pole of the thyroid. She also has a 1.1 cm hypoechoic left lower pole thyroid nodule which I suspect may represent an intrathyroidal parathyroid. She was referred to Dr. Sandoval and underwent a subtotal parathyroidectomy with resection of of 3 parathyroid glands (left inferior, left superior and right inferior) all with pathology confirming hypercellular parathyroid tissue. Biopsy was taken of the right superior parathyroid, with cytology revealing normocellular parathyroid tissue. Has 0 servings of dietary calcium per day. Takes Calcium citrate 600 mg PO daily. Takes 1000 IU of Vitamin D daily. Denies using PPI, anticoagulant, antiepileptic or glucocorticoid medication. Has used prednisone tapers in the past, but no custodial glucocorticoid therapy. Has celiac disease and follows a strict gluten free diet. Does weight bearing exercise in the form of walking 5000 steps 5 days per week. Fracture history: Fractured her collar bone. This was a fragility fracture from a fall from standing. Height loss: Denies COMPRESSED GASES TESTER history: Menarche was age 14. Menses was always regular. . She did breastfeed 3-4 hours in total. Menopause was in her 50's, but she does not recall. Did have kidney stones in the past. Denies family history of Osteoporosis or hip fracture. UTD on dental cleanings and sees dentist every 6 months. No planned upcoming dental work or extractions. 2) NTMNG: She had an US of the thyroid completed 10/05/2021 which revealed a multinodular thyroid. She then underwent FNA biopsy of her RMP 1.1 cm thyroid nodule with cytology consistent with a follicular lesion of undetermined significance (bethesda category III). 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 She was referred to Dr. Turner and underwent a L thyroid lobectomy. Surgical pathology revealed incidental finding of 1.5 mm of classic PTC. This was unifocal, with no angioinvasion, no lymphatic invasion, no perineural invasion and no extrathyroidal extension. Margins were uninvolved. 0/4 lymph nodes were positive for metastatic disease. She is seen today in F/U. DEXA: 06/01/2021 FINDINGS: AP SPINE L1-L4: Current: BMD 0.881 g/cm2, Z-score -1.3, T-score -2.5, osteoporosis, 0.6% increase from previous, 8.5% increase from baseline (<5% change is not significant). Prior: BMD 0.876 g/cm2. Baseline: BMD 0.812 g/cm2. LEFT FEMUR, NECK: Current: BMD 0.761 g/cm2, Z-score -0.8, T-score -2.0, osteopenia. Prior: BMD 0.759 g/cm2. Baseline: BMD 0.776 g/cm2. LEFT FEMUR, TOTAL: Current: BMD 0.757 g/cm2, Z-score -1.1, T-score -2.0, osteopenia, 2.9% increase from previous, 3.8% increase from baseline (<5% change is not significant). Prior: BMD 0.736 g/cm2. Baseline: BMD 0.729 g/cm2. Distal Forearm DEXA 09/30/2021: FINDINGS: LEFT FOREARM RADIUS 33%: BMD 0.635 g/cm2, Z-score -1.7, T-score -2.8, osteoporosis. Prior:? Not previously measured. Thyroid US: 10/05/21 Right Thyroid Lobe: 5.2 x 2.1 x 1.7 cm, volume 9.7 mL. Parenchyma: The gland echotexture is homogeneous. Thyroid vascularity is normal. Left Thyroid Lobe: 4.1 x 1.3 x 1.6 cm, volume 4.5 mL. Parenchyma: The gland echotexture is homogeneous. Thyroid vascularity is normal. Isthmus: 0.2 cm in maximum AP dimension. Estimated total number of nodules greater than or equal to 1 cm: 1. Body Artist nodules are described as follows: 1. Location: Medial mid left. ?? ? Size: 0.5 x 0.2 x 0.2 cm, volume 0.02 mL. ?? ? Nodule characteristics: ?? ? Composition: Spongiform (0). ?? ? Echogenicity: Anechoic (0). ?? ? Shape: Not taller than wide (0). ?? ? Margins: Smooth (0). ?? ? Echogenic Foci: None (0). ?? ? ACR TI-RADS total points: 0 ?? ? ACR TI-RADS category: 1 2. Location: Inferior left. ?? ? Size: 1.1 x 0.6 x 1.0 cm, volume 0.32 mL. ?? ? Nodule characteristics: ?? ? Composition: Solid (2). ?? ? Echogenicity: Very hypoechoic (3). ?? ? Shape: Not taller than wide (0). ?? ? Margins: Smooth (0). ?? ? Echogenic Foci: None (0). ?? ? ACR TI-RADS total points: 5 ?? ? ACR TI-RADS category: 4 NODES: No significant adenopathy noted. Lung the inferior margin of the right and left lobe, a small hypoechoic areas, on the right at 13 x 8 x 6 mm and on the left 6 x 5 x 9 mm. These may reflect a parathyroid glands. Labs: Laboratory Tests 02/20/23 02/20/23 15:20 15:20 Creatinine 0.84 Estimated GFR > 60 25-OH Vitamin D Total 55.9 TSH 4.69 H PTH Intact 24 Calcium (PTH Intact) 9.4 She is currently on alendronate 70 mg Q weekly. The patient is a 64-year-old female presenting with concerns related to osteoporosis management and thyroid medication issues. The patient has been experiencing significant bone pain, particularly in the spine, ankles, and knees, despite discontinuing alendronate due to adverse effects such as gastrointestinal discomfort. She reports that the pain persists and is severe, raising concerns about potential fractures, although no recent trauma has occurred. A lumbar spine x-ray has been ordered to rule out fractures. The patient has a history of thyroid cancer, for which she underwent partial thyroidectomy and parathyroidectomy. She has been on levothyroxine, but her primary care physician has not renewed the prescription due to concerns about cancer risk, which the patient read about but is not supported by evidence. Her thyroid levels were normal last year, and she has a limited supply of medication remaining. The patient also reports experiencing gastroesophageal reflux disease symptoms, which were exacerbated by alendronate, leading to its discontinuation. [facility] Medical History Tick bite of back Nocturnal leg cramps History of cholecystitis History of adenomatous polyp of colon FH: cholecystectomy Postoperative hypothyroidism Thyroid cancer Multinodular thyroid Hyperparathyroidism Allergic rhinitis Deviated nasal septum Vitamin D deficiency Osteoporosis Tubular adenoma of colon Celiac disease Emphysema lung Hiatal hernia Impaired fasting glucose Dyslipidemia Surgical History Hx of cholecystectomy History of laparoscopic cholecystectomy History of lobectomy of thyroid Hx of parathyroidectomy Hx of biopsy History of tonsillectomy and adenoidectomy History of Family History Father Essential hypertension CVA (cerebral vascular accident) Cardiovascular disease Mother Essential hypertension Skin cancer Heart disease Brother FHx: early ND Social History Housing: House Alcohol intake: former Patient Tobacco Use Status: Former Tobacco user e-Cigarette/Vaping Use: Never Used Current occupational status: employed Cognitive needs: No Hearing needs: No Vision needs: Yes Physical Exam Vital Signs: Last Vital Signs Pulse 84 05/13/25 15:47 BP 162/98 H 05/13/25 15:47 Pulse Ox 96 05/13/25 15:47 Oxygen Delivery Method Room Air 05/13/25 15:47 BMI result Body Mass Index 30.2 Assessment & Plan Assessment & Plan (1) Osteoporosis: Code(s): M81.0 - Age-related osteoporosis without current pathological fracture Category: Medical Qualifiers: Osteoporosis type: age-related Presence of current pathological fracture: without current pathological fracture Qualified Code(s): M81.0 - Age- related osteoporosis without current pathological fracture Plan: History of primary hyperparathyroidism status post parathyroidectomy. Other secondary causes of osteoporosis rule out. Patient currently on calcium and vitamin-D supplementation as well as alendronate started 03/2024. Urine NTX is suppressed. 1. Osteoporosis The patient has been experiencing significant bone pain, and a lumbar spine x- ray has been ordered to rule out fractures. The patient is advised to continue calcium and vitamin D supplementation. If the x-ray reveals a fracture, alternative treatments such as injectable medications may be considered. 2. Thyroid cancer The patient requires a renewal of levothyroxine prescription, as her primary c are physician has not renewed it due to unfounded cancer risk concerns. Thyroid function tests will be conducted to ensure appropriate hormone levels. 3. Gastroesophageal reflux disease The patient reports reflux symptoms exacerbated by alendronate, which has been discontinued. Alternative osteoporosis treatments are being considered to avoid exacerbating reflux symptoms to reflux worsens on the alendronate. The patient had an opportunity to ask questions regarding treatment plan. The patient expressed understanding and agreement with the above treatment plan. Patient was informed and verbally consented to the use of an ambient scribe for clinic note documentation during this visit. The patient had an opportunity to ask questions regarding treatment plan. The patient expressed understanding and agreement with the above treatment plan. . Patient was informed and verbally consented to the use of an ambient scribe for clinic note documentation during this visit. Orders: Orders Free T4 (Free Thyroxine) Today M81.0 - Age-related osteoporosis without current pathological fracture Thyroid Stimulating Hormone Today M81.0 - Age-related osteoporosis without current pathological fracture XR lumbar spine 4V min Today M81.0 - Age-related osteoporosis without current pathological fracture Medications: Refilled levothyroxine 25 mcg PO DAILY 90 tabs 0RF 90 days E89.0 - Postprocedural hypothyroidism Coding Level of Care Code Est Pt Level 3 (25471) Diagnoses Age-related osteoporosis without current pathological fracture M81.0 Osteoporosis type: age-related Presence of current pathological fracture: without current pathological fracture
[2025-05-13 15:47] VITALS: BP 162/98; PULSE 84; O2SAT 95; BMI 30.6
== END 2025-05-13 16:18 | disposition home or self-care (01) ==
LOC: HO.ENCR 15:45
PROVIDERS: Visit Provider Internal Medicine Endocrinology, Diabetes & Metabolism
DX: M81.0 Age-related osteoporosis without current pathological fracture (principal)
CPT/HCPCS: 99213

== ENCOUNTER 2025-05-28 13:53 | Outpatient (REF) | payer BC, SELFPAY ==
--- NOTE | ~2025-05-28 | XR_ITS ---
EXAMINATION: XR LUMBOSACRAL SPINE CLINICAL INFORMATION: M81.0 - Age-related osteoporosis without current pathological fracture COMPARISON: Correlated to CT abdomen pelvis dated May 14, 2019. TECHNIQUE: AP oblique and lateral views FINDINGS: Multilevel marginal osteophyte formation and endplate sclerosis with decreased intervertebral disc height and vacuum phenomenon at L5-S1 and to a lesser extent L4-5 and L2-3 levels. No gross malalignment. No acute cortical disruption. Facet joint hypertrophy at L5-S1 S-shaped curvature of the thoracolumbar spine. Vascular clips in the right upper quadrant abdomen likely cholecystectomy. Vascular calcifications in the aorta. XR/XR lumbar spine 4V min IMPRESSION: Multilevel spondylosis pronounced at L4-5 and L5-S1 levels without acute fracture or listhesis. Electronically signed by: William Delgado MD 05/28/2025 03:07 PM EDT
[2025-05-28 15:08] LABS: Free T4 (Free Thyroxine) 1.02 ng/dL (0.71-1.85); Thyroid Stimulating Hormone 2.94 uIU/mL (0.32-4.0)
== END 2025-05-28 13:54 | disposition home or self-care (01) ==
LOC: HO.LAB 13:53
PROVIDERS: PCP Internal Medicine; Visit Provider Internal Medicine Endocrinology, Diabetes & Metabolism
DX: M81.0 Age-related osteoporosis without current pathological fracture (principal)
CPT/HCPCS: 36415; 72110; 84439; 84443

== ENCOUNTER → 2025-05-28 14:05 | Outpatient (BNV) | payer BC, SELFPAY | PROVIDERS: PCP Internal Medicine; Visit Provider Radiology Diagnostic Radiology | DX: M47.816 Spondylosis without myelopathy or radiculopathy, lumbar region (principal) | CPT/HCPCS: 72110 ==

== ENCOUNTER 2025-06-26 13:50 | Outpatient (AMB) | payer BC, SELFPAY ==
--- NOTE | 2025-06-26 14:14 | MHC.PC.OV ---
Vital Signs 06/26/25 14:27 Height 5 ft 1 in Weight 163 lb BMI 30.8 BP 140/84 H Blood Pressure Location Rt brachial Position Sitting Respiration 16 Pulse 82 Pulse Source Pulse Oximeter Temp 98.0 F Temp Source Oral Pulse Oximetry (%) 95 Oxygen Delivery Method Room Air Intake Visit Reasons: Annual PE Intake Note: Pt is here today for her PE: last mammogram 05/15/24, bone denisty scan 05/15/24, colonoscopy 03/20/17 Allergies trees Allergy (Mild, Uncoded 06/26/25 14:39) watery eyes, scratchy throat chocholate Allergy (Unknown, Uncoded 06/26/25 14:39) rash Medication List - Last Reconciled 06/26/25 by Anahi Moon MD alendronate 70 mg PO QWEEK atorvastatin 10 mg PO DAILY calcium 750 mg cholecalciferol (vitamin D3) 25 mcg PO DAILY fluticasone propion-salmeterol 250-50 mcg/dose (Advair Diskus) 1 inh inhalation BID levothyroxine 25 mcg PO DAILY 90 days magnesium citrate 400 mg PO DAILY montelukast 10 mg PO QAM Tobacco use date assessed: 06/26/25 Fall risk assessment: No Falls in past year Last assessed Fall Risk: 06/26/25 Dental Screening Dental Screen Date: 06/26/25 Did you have a dental visit in the last 12 months?: No Did you have a dental problem in the last 6 months where you did not have access to dental care?: No Was dental information given to patient?: Patient has dentist HPI Annual PE HPI Details 64 year-old lady with history of emphysema, celiac disease, hypertension, hyperlipidemia, Post operative hypothyroidism, 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 She had her last last mammogram together with her bone density scan in April 2024, up-to-date with her cervical cancer screening, with papsmear 01/12/23. She has an appointment for her mammogram already scheduled for this month. Currently followed by Dr. Pacheco for her osteoporosis and hypothyroidism. Overdue for her screening colonoscopy, done by Dr. Payton. Will check with Dr. Payton's office if they take her new insurance She has emphysema, currently using generic Advair which she states has not been helping. Switch her to Symbicort generic and see if this will help instructions given on how to use inhaler. Has albuterol inhaler to use as a rescue for episodes of bronchospasm and wheezing. [facility] Medical History Tick bite of back Nocturnal leg cramps History of cholecystitis History of adenomatous polyp of colon FH: cholecystectomy Postoperative hypothyroidism Thyroid cancer Multinodular thyroid Hyperparathyroidism Allergic rhinitis Deviated nasal septum Vitamin D deficiency Osteoporosis Tubular adenoma of colon Celiac disease Emphysema lung Hiatal hernia Impaired fasting glucose Dyslipidemia Surgical History Hx of cholecystectomy History of laparoscopic cholecystectomy History of lobectomy of thyroid Hx of parathyroidectomy Hx of biopsy History of tonsillectomy and adenoidectomy History of Family History Father Essential hypertension CVA (cerebral vascular accident) Cardiovascular disease Mother Essential hypertension Skin cancer Heart disease Brother FHx: early DC Social History Housing: House Alcohol intake: former Patient Tobacco Use Status: Former Tobacco user e-Cigarette/Vaping Use: Never Used Current occupational status: employed Cognitive needs: No Hearing needs: No Vision needs: Yes Questionnaire PHQ-9 Over the last 2 weeks, how often have you been bothered by any of the following problems? 1. Little interest or pleasure in doing things: not at all 2. Feeling down, depressed, or hopeless: not at all 3. Trouble falling or staying asleep, or sleeping too much: not at all 4. Feeling tired or having little energy: not at all 5. Poor appetite or overeating: not at all 6. Feeling bad about yourself - or that you are a failure or have let yourself or your family down: not at all 7. Trouble concentrating on things, such as reading the newspaper or watching television: not at all 8. Moving or speaking so slowly that other people could have noticed. Or the opposite - being so fidgety or restless that you have been moving around a lot more than usual: not at all 9. Thoughts that you would be better off or of hurting yourself in some way: not at all Total score: 0 Depression Screening Interpretation: Negative Depression Screening Done: Yes 81804 - PHQ-9 Billing: Yes Source: Developed by Drs. Anurag Whitaker, Marine Ibarra, Michael Root and colleagues, with an educational donya from [employer] Thrive Questionnaire Date Thrive assessed: 06/26/25 I am a: Patient What is your living situation today?: I have a steady place to live Within the past 12 months, did the food you bought not last and you didn't have the money to get more?: I choose not to answer this question Within the past 12 months, did you worry whether your food would run out before you got money to buy more?: I choose not to answer this question Do you have trouble paying for medicines?: I choose not to answer this question Do you have trouble getting transportation to medical appointments?: I choose not to answer this question Do you have trouble paying your heating and electricity bill?: I choose not to answer this question Do you have trouble taking care of your child, family member or friend?: I choose not to answer this question Do you have trouble with day-to-day activities such as bathing, preparing meals, shopping, managing finances, etc.?: I choose not to answer this question Are you currently unemployed and looking for a job?: I choose not to answer this question Are you interested in more education?: I choose not to answer this question Please select the resources that you would like help with: None Currently or been in a relationship where the following occur: No concerns reported THRIVE Score: 0 AUDIT C Alcohol Use Questionnaire (AUDIT-C) 1. How often do you have a drink containing alcohol?: Never Total Score: 0 Score Reviewed/Action Taken: Yes KWAKU-7 AMB Questionnaire KWAKU-7 Date KWAKU - 7 assessed: 06/26/25 Feeling nervous, anxious, or on edge: 0 = Not at all Not being able to stop or control worryin = Not at all Worrying too much about different things: 0 = Not at all Trouble relaxin = Not at all Being so restless that it is hard to sit still: 0 = Not at all Becoming easily annoyed or irritable: 0 = Not at all Feeling afraid as if something awful might happen: 0 = Not at all Total KWAKU-7 score (0-4 normal; 5-9 mild; 10-14 moderate; 15-21 severe): 0 Source: Developed by Drs. Anurag Whitaker, Marine Ibarra, Michael Root and colleagues, with an educational donya from [employer] KWAKU-7 Assessment Billing KWAKU-7 Assessment Tool: KWAKU-7 Assessment 28922 Review of Systems Const Denies daytime sleepiness, Denies fever(s) and Denies poor appetite Eyes Details: She has [facility] for treatment with glaucoma, had laser treatment July 2024 Reports requires corrective lenses ENT Denies change in voice, Denies vertigo, Denies dizziness, Denies epistaxis, Denies disequilibrium and Denies sore throat Card Denies chest pain, Denies rapid heart rate and Denies irregular heart rhythm Resp Reports no additional complaints GI Reports no additional complaints Reports no additional complaints Musc Reports no additional complaints Skin/Breast Denies dry skin Neuro Denies vertigo, Denies dizziness and Denies disequilibrium Psych Reports no additional complaints Endo Reports no additional complaints Darci/Lymph Reports no additional complaints Aller/Immun Reports no additional complaints Physical exam (Primary Care) Vital Signs: Last Vital Signs Temp 98.0 F 06/26/25 14:27 Pulse 82 06/26/25 14:27 Resp 16 06/26/25 14:27 BP 140/84 H 06/26/25 14:27 Pulse Ox 95 06/26/25 14:27 Oxygen Delivery Method Room Air 06/26/25 14:27 BMI result Body Mass Index 30.8 Tobacco/Smoking Status: Tobacco use Status Tobacco use date assessed 06/26/25 06/26/25 14:20 Patient Tobacco Use Status Former Tobacco user 06/26/25 14:16 e-Cigarette/Vaping Use Never Used 06/26/25 14:16 PHQ-9: PHQ-9 Score PHQ-9: Total score 0 06/26/25 15:04 Depression Screening Interpretation: Negative Thrive Assessment: Date of Thrive Assessment Date Thrive assessed 06/26/25 06/26/25 14:20 Currently or been in a relationship where the following occur: No concerns reported Const Other: Alert oriented x3, no acute distress noted ambulatory normal gait General: comfortable, no acute distress, alert and awake Nutritional Appearance: average body habitus Orientation/consciousness: patient oriented x3 HENMT Head: Yes normocephalic Ears: hearing grossly normal bilaterally, TM's normal bilaterally and EAC's normal General nose exam: Normal external nose present, Normal nasal mucous membranes and turbinates present and no nasal discharge noted Face and sinus: Yes face symmetric Eyes General: appearance normal, both eyes and all related structures Neck Neck: Yes full ROM, Yes no lymphadenopathy and Yes supple Chest Breast/axilla palpation: normal palpation of the breasts Resp Effort & Inspection: normal respiratory effort and able to speak in complete sentences Auscultation: clear to auscultation bilaterally Cardio Rate: regular rate Rhythm: regular rhythm Heart sounds: S1 normal heart sound present and S2 normal heart sound present GI Palpation (GI): Soft to palpation, nontender, no guarding and no masses Auscultation: normal bowel sounds General: Yes no CVA tenderness Back/Spine/Pelvis Back: no CVA tenderness and No back tenderness Skin Other: Slightly tender nodular lesion on right axillary area, with no overlying erythema or increased warmth no drainage Neuro General: patient oriented x3, gait normal, tone normal, moves all extremities, Normal light touch and pain sensation, no focal motor deficits and CN's II-XI intact bilaterally Extrem General: Yes normal to inspection, Yes full ROM, Yes no joint enlargement, Yes no clubbing, cyanosis or edema, Yes no calf tenderness and Yes normal gait Psych Appearance: grossly normal and well kempt Mental Status: mental status grossly normal Speech and movement: Normal speech and movement present Affect: normal affect Results Reviewed Results Reviewed: Name: Gracie Blakely Age/Sex: 64/F [facility] 1960 [id number]#: [id number] Attend Dr: Anurag Pacheco MD Re05/28/25 Status: DEP REF Location: .LAB Disch: SPEC : [id number] CANDY: 05/28/25 STATUS: COMP REQ : [id number] RECD: 05/28/[address]: Anurag Pacheco MD COMP: 05/28/25-1508 ENTERED: 05/28/25-[address]: Anahi Moon MD ORDERED: Free T4, TSH Test Result Flag Reference Free T4 1.02 0.71-1.85 ng/dL TSH 3rd Gen. 2.94 0.32-4.0 uIU/mL Note: A sustained TSH level above 2.5 uIU/mL may warrant further investigation. TSH 3rd Generation ([facility]) Coding Level of Care Code Est Pt Prev Care >65y(34199) Diagnoses Dyslipidemia E78.5 Impaired fasting glucose R73.01 Age-related osteoporosis without current pathological fracture M81.0 Osteoporosis type: age-related Presence of current pathological fracture: without current pathological fracture Vitamin D deficiency E55.9 Postoperative hypothyroidism E89.0 Pulmonary emphysema, unspecified emphysema type J43.9 Emphysema type: unspecified Annual visit for general adult medical examination with abnormal findings Z00.01 Additional Codes KWAKU-7 Assessment Billing - KWAKU-7 Assessment Tool: KWAKU-7 Assessment 40109 ([id number]) PHQ-9 - 22700 - PHQ-9 Billing: Yes ([id number]) Assessment & Plan Assessment & Plan (1) Dyslipidemia: Code(s): E78.5 - Hyperlipidemia, unspecified Category: Medical Plan: Fasting lipid panel ordered, continue on atorvastatin 10 mg daily, (2) Impaired fasting glucose: Code(s): R73.01 - Impaired fasting glucose Category: Medical Plan: Your previous fasting blood sugars were elevated above 100 mg/dL. Impaired glucose metabolism increases the risk for developing diabetes mellitus type 2, as well as heart attack and stroke later on. Lifestyle changes that promotes weight loss, healthy eating habits, and regular exercise are important, and can prevent the progression to diabetes (3) Osteoporosis: Code(s): M81.0 - Age-related osteoporosis without current pathological fracture Category: Medical Qualifiers: Osteoporosis type: age-related Presence of current pathological fracture: without current pathological fracture Qualified Code(s): M81.0 - Age-related osteoporosis without current pathological fracture Plan: Forced importance of doing regular weight-bearing exercise, taking adequate calcium from dietary sources, and take cholecalciferol daily and continue with alendronate 70 mg once a week. (4) Vitamin D deficiency: Code(s): E55.9 - Vitamin D deficiency, unspecified Category: Medical Plan: Vitamin-D level was ordered , latest vitamin-D levels within normal limits (5) Postoperative hypothyroidism: Code(s): E89.0 - Postprocedural hypothyroidism Category: Medical Plan: Latest thyroid levels are within normal limits (6) Emphysema lung: Comment: Seen by Dr. Farfan Code(s): J43.9 - Emphysema, unspecified Category: Medical Qualifiers: Emphysema type: unspecified Qualified Code(s): J43.9 - Emphysema, unspecified Plan: Patient states that her symptoms of intermittent episodes of bronchospasm and wheezing is not much better with taking fluticasone propionate-salmeterol, and would like to see if there are other treatment options that can be availed. Prescription sent for budesonide-formoterol 160-4.5 mcg per inhaler 2 in in 1 2 to inhalations every 12 hours, rinse mouth after use, (7) Annual visit for general adult medical examination with abnormal findings: Code(s): Z00.01 - Encounter for general adult medical examination with abnormal findings Plan: Will check appropriate labs. Recommended dental visit every 6 months and regular eye exams, at least every 2 years. Take adequate calcium in diet and vitamin-D 3 at 2000 IU per cap once a day, in addition to weight-bearing exercises to help maintain good muscle tone and weight control. Instructed to do self-breast exam, and continue to get yearly mammogram, has appointment already scheduled. Currently being followed by Dr. Pacheco for her osteoporosis, on alendronate. Due for her screening colonoscopy, previously was being seen by Dr. Payton, advised to check with her office and see if they are still taking her insurance, otherwise to let me know and will refer her to a different GI clinic. Up-to-date with her vaccines Plan Fasting labs ordered to check lipids, thyroid levels, vitamin-D and electrolyte levels. Orders: Orders Alanine Aminotransferase 06/28/25 R73.01 - Impaired fasting glucose, E78.5 - Hyperlipidemia, unspecified, E89.0 - Postprocedural hypothyroidism, M81.0 - Age-related osteoporosis without current pathological fracture, E55.9 - Vitamin D deficiency, unspecified Aspartate Amino Transferase 06/28/25 R73.01 - Impaired fasting glucose, E78.5 - Hyperlipidemia, unspecified, E89.0 - Postprocedural hypothyroidism, M81.0 - Age-related osteoporosis without current pathological fracture, E55.9 - Vitamin D deficiency, unspecified Lipid Panel 06/28/25 R73.01 - Impaired fasting glucose, E78.5 - Hyperlipidemia, unspecified, E89.0 - Postprocedural hypothyroidism, M81.0 - Age-related osteoporosis without current pathological fracture, E55.9 - Vitamin D deficiency, unspecified Vitamin D 25-OH Total 06/28/25 R73.01 - Impaired fasting glucose, E78.5 - Hyperlipidemia, unspecified, E89.0 - Postprocedural hypothyroidism, M81.0 - Age-related osteoporosis without current pathological fracture, E55.9 - Vitamin D deficiency, unspecified Basic Metabolic Panel Fasting 06/28/25 R73.01 - Impaired fasting glucose, E78.5 - Hyperlipidemia, unspecified, E89.0 - Postprocedural hypothyroidism, M81.0 - Age-related osteoporosis without current pathological fracture, E55.9 - Vitamin D deficiency, unspecified Medications: New budesonide-formoterol 160-4.5 mcg/actuation (Symbicort) 2 puffs inhalation Q12H 10.2 grams 4RF J43.9 - Emphysema, unspecified Discontinued fluticasone propion-salmeterol 250-50 mcg/dose Discontinued Reason: Doctor's Order 1 inh inhalation BID 60 ea 1RF
[2025-06-26 14:27] VITALS: BP 140/84; PULSE 82; RESP 16; TEMP 36.7; O2SAT 95; BMI 30.8
== END 2025-06-26 15:03 | disposition home or self-care (01) ==
PROVIDERS: PCP Internal Medicine; Visit Provider Internal Medicine
DX: Z00.00 Encounter for general adult medical examination without abnormal findings (principal); J43.9 Emphysema, unspecified; E78.5 Hyperlipidemia, unspecified; R73.01 Impaired fasting glucose; M81.0 Age-related osteoporosis without current pathological fracture; E55.9 Vitamin D deficiency, unspecified; E89.0 Postprocedural hypothyroidism

== ENCOUNTER → 2025-06-26 13:50 | Outpatient (BNVA) | payer BC, SELFPAY | PROVIDERS: PCP Internal Medicine; Visit Provider Internal Medicine | DX: Z00.01 Encounter for general adult medical examination with abnormal findings (principal); E78.5 Hyperlipidemia, unspecified; R73.01 Impaired fasting glucose; M81.0 Age-related osteoporosis without current pathological fracture; E55.9 Vitamin D deficiency, unspecified; E89.0 Postprocedural hypothyroidism; J43.9 Emphysema, unspecified; Z79.899 Other long term (current) drug therapy; Z13.31 Encounter for screening for depression; Z13.39 Encounter for screening examination for other mental health and behavioral disorders | CPT/HCPCS: 96127 ==

== ENCOUNTER 2025-06-28 10:19 | Outpatient (REF) | payer BC, SELFPAY ==
--- NOTE | ~2025-06-28 | MM_ITS ---
EXAMINATION: MM SCREENING DIGITAL BREAST TOMOSYNTHESIS, BILATERAL CLINICAL INFORMATION: Screening. Asymptomatic. COMPARISON: Mammography: Comparison is made with available priors TECHNIQUE: Digital breast mammography with tomosynthesis is performed in both the craniocaudal and mediolateral oblique views along with computer-aided detection (CAD). FINDINGS: There are scattered areas of fibroglandular density (ACR BI-RADS breast composition Category b). Left: Asymmetry lateral breast posterior depth on CC view. No suspicious calcifications or other abnormal findings. Right: Asymmetry lateral breast posterior depth on CC view. No suspicious calcifications or other abnormal findings. MM/MM tomosynthesis screening BI IMPRESSION: Additional imaging is recommended ASSESSMENT: BI-RADS BI-RADS 0 - Incomplete: Needs additional Imaging. RECOMMENDATION: 1. Additional views of the bilateral breasts. 2. Targeted ultrasound if warranted after review of the additional views. 3. Radiology department staff will contact the patient for additional imaging. Additional Imaging required Electronically signed by: Elizabeth Fisher DO 07/01/2025 03:24 PM EDT
[2025-06-28 12:14] LABS: Alanine Aminotransferase 28 U/L (0-31); Anion Gap 13 (12-20); Aspartate Amino Transferase 29 U/L (5-31); Blood Urea Nitrogen 14 mg/dL (9-16); Calcium 9.1 mg/dL (8.4-10.2); Carbon Dioxide 25 mmol/L (22-29); Chloride 105 mmol/L (96-108); Cholesterol 171 mg/dL (<200); Estimated Glomerular Filt Rate > 60; HDL Cholesterol 57 mg/dL (>40); Potassium 3.4 mmol/L (3.3-5.1); Sodium 140 mmol/L (135-145); Triglycerides 113 mg/dL (<150)
== END 2025-06-28 10:20 | disposition home or self-care (01) ==
LOC: HO.MAMMO 10:19
PROVIDERS: PCP Internal Medicine; Visit Provider Internal Medicine
DX: Z12.31 Encounter for screening mammogram for malignant neoplasm of breast (principal); M81.0 Age-related osteoporosis without current pathological fracture; E78.5 Hyperlipidemia, unspecified; E89.0 Postprocedural hypothyroidism; E55.9 Vitamin D deficiency, unspecified; R73.01 Impaired fasting glucose
CPT/HCPCS: 36415; 77063; 77067; 80048; 80061; 82306; 84450; 84460

== ENCOUNTER → 2025-06-28 10:30 | Outpatient (BNV) | payer BC, SELFPAY | PROVIDERS: PCP Internal Medicine; Visit Provider Internal Medicine | DX: Z12.31 Encounter for screening mammogram for malignant neoplasm of breast (principal) | CPT/HCPCS: 77063; 77067 ==

== ENCOUNTER 2025-07-24 12:18 | Outpatient (REF) | payer BC, SELFPAY ==
--- NOTE | ~2025-07-24 | MM_ITS ---
EXAMINATION: MM DIAGNOSTIC DIGITAL BREAST TOMOSYNTHESIS, BILATERAL Bilateral Limited ultrasound. CLINICAL INFORMATION: Back from screening for bilateral asymmetries on CC view. COMPARISON: Mammography: Comparison is made with relevant prior exams. TECHNIQUE: Digital breast mammography with tomosynthesis is performed in both the craniocaudal and mediolateral oblique views along with computer-aided detection (CAD). FINDINGS: There are scattered areas of fibroglandular density. Left: Asymmetry lateral left breast posterior depth partially effaces on additional imaging projections. No suspicious calcifications or other abnormal findings. Targeted color Doppler ultrasound scanning in the lateral left breast 1 5:00 demonstrates a hypoechoic oval circumscribed solid mass versus complicated cyst at 2:00 9 cm from the nipple measuring 2 x 3 x 2 mm this is a probable correlate for the mammographic asymmetry. Right: Asymmetry lateral right breast posterior depth on CC view persist on additional imaging projections. No suspicious calcifications or other abnormal findings. Targeted color Doppler ultrasound scanning in the lateral right breast 7-11 o'clock demonstrates a hypoechoic oval circumscribed solid mass versus complicated cyst at 9:00 8 cm from nipple measuring 4 x 2 x 4 mm which correlates with the focal asymmetry on mammography. Results are provided to the patient at time of visit by the technologist. MM/MM tomosynthesis added view BI IMPRESSION: Solid mass versus complicated cyst on ultrasound right breast 9:00 7 cm from the nipple and 2:00 9 cm from nipple. Recommend 6 month follow-up ultrasound for further evaluation of stability. ASSESSMENT: BI-RADS Category 3: Probably benign RECOMMENDATION: 6 Month F/U This patient's information was entered into a reminder system with a target due date for their next mammogram. Electronically signed by: Elizabeth Fisher DO 07/24/2025 01:42 PM EDT
== END 2025-07-24 12:19 | disposition home or self-care (01) ==
LOC: HO.MAMMO 12:18
PROVIDERS: PCP Internal Medicine; Visit Provider Internal Medicine
DX: N64.89 Other specified disorders of breast (principal)
CPT/HCPCS: 76642; 77062; 77066

== ENCOUNTER → 2025-07-24 12:30 | Outpatient (BNV) | payer BC, SELFPAY | PROVIDERS: PCP Internal Medicine; Visit Provider Internal Medicine | DX: N63.15 Unspecified lump in the right breast, overlapping quadrants (principal); R92.8 Other abnormal and inconclusive findings on diagnostic imaging of breast | CPT/HCPCS: 76642; 77062; 77066 ==